=== PATIENT | female | born 1980 | race African-American/Black ===

== ENCOUNTER 2024-03-21 11:32 | Inpatient (IN) | payer MEDICAID ==
[~2024-03-21] VITALS: Ht 172.7 cm; Wt 80.9 kg
[~2024-03-21 11:32] MED LIST: DOCU-412 PO; HALOD100I IM; OLAN300V IM; OMEP20 PO
[2024-03-21 12:44] LABS: EOSINOPHILS % (AUTO) 0.4 % (1.0-6.0); HEMATOCRIT 40.4 % (36-46); HEMOGLOBIN 13.6 g/dL (12.0-16.0); LYMPHOCYTES # (AUTO) 3.7 K/uL (1.0-4.8); MEAN CORPUSCULAR HEMOGLOBIN 30.8 pg (26.0-34.0); MEAN CORPUSCULAR HGB CONC 33.6 G/dL (31.0-37.0); MEAN CORPUSCULAR VOLUME 92 fL (80-100); MONOCYTES % (AUTO) 9.1 % (2.0-9.0); NEUTROPHILS # (AUTO) 5.7 K/uL (1.8-7.7); NEUTROPHILS % (AUTO) 54.5 % (40.0-70.0); PLATELET COUNT (AUTO) 307 K/uL (150-450); RED BLOOD CELL COUNT(AUTO) 4.41 MIL/uL (4.00-5.20); RED CELL DISTRIBUTION WIDTH 15.1 % (11.5-14.5); WHITE BLOOD COUNT (AUTO) 10.5 K/uL (4.5-11.0)
[2024-03-21 12:45] LABS: ANION GAP 14 mmol/L (8-16); CALCIUM, TOTAL 8.9 mg/dL (8.8-10.5); CARBON DIOXIDE 24 mmol/L (22-29); CHLORIDE 104 mmol/L (98-107); CREATININE 0.65 mg/dL (0.60-1.30); GLOMERULAR FILTR. RATE CALC > 60 mL/min (>60); GLUCOSE,RANDOM 139 mg/dL (70-110); POTASSIUM 3.5 mmol/L (3.5-5.1); SODIUM SERUM 142 mmol/L (136-145); UREA NITROGEN, BLOOD 14 mg/dL (7-18)
[2024-03-21] MEDS ORDERED: OLANZapine 5 MG RAPDIS TABLET PO PRN (12:45)
[2024-03-21 12:50] LABS: ALCOHOL, BLOOD (SERUM) < 3 mg/dL (0-10)
[2024-03-21 12:51] LABS: ALANINE AMINOTRANSFERASE 26 U/L (12-78); ALBUMIN 3.6 g/dL (3.4-5.0); ALKALINE PHOSPHATASE 108 U/L (46-116); ASPARTATE AMINOTRANSFERASE 16 U/L (15-37); BILIRUBIN,TOTAL 0.1 mg/dL (0.1-1.0); TOTAL PROTEIN, SERUM 7.5 g/dL (6.4-8.2)
[2024-03-21 13:12] LABS: APPEARANCE,URINE CLEAR (CLEAR); BILIRUBIN,URINE NEGATIVE (NEGATIVE); COLOR,URINE YELLOW (YELLOW); GLUCOSE, URINE (UA) NEGATIVE (NEGATIVE); KETONES,URINE NEGATIVE (NEGATIVE); LEUKOCYTE ESTERASE ,URINE MODERATE (NEGATIVE); NITRATE,URINE NEGATIVE (NEGATIVE); OCCULT BLOOD,URINE NEGATIVE (NEGATIVE); PH,URINE 6.5 (5.0-8.0); PH,URINE DRUG SCREEN 6.5 (5.0-8.0); PROTEIN,URINE TRACE mg/dL (NEGATIVE); SPECIFIC GRAVITIY, URINE 1.025 (1.003-1.030); UROBILINOGEN,URINE <=1.0 mg/dL (<=1.0)
[2024-03-21 13:19] LABS: ALCOHOL, URINE DRUG SCREEN NEGATIVE (NEGATIVE); AMPHET/METH SCREEN,URINE NEGATIVE (NEGATIVE); BACTERIA,URINE None Seen /HPF (None Seen); BARBITURATE SCREEN, URINE NEGATIVE (NEGATIVE); BENZODIAZEPINES SCREEN,URINE NEGATIVE (NEGATIVE); CANNABINOID SCREEN,URINE NEGATIVE (NEGATIVE); COCAINE SCREEN,URINE NEGATIVE (NEGATIVE); METHADONE SCREEN, URINE NEGATIVE (NEGATIVE); OPIATE SCREEN,URINE NEGATIVE (NEGATIVE); PHENCYCLIDINE SCREEN,URINE NEGATIVE (NEGATIVE); RBC,URINE None Seen /HPF (0-2); SQUAMOUS EPITHELIAL CELL,UR Few /LPF (None Seen)
[2024-03-21 13:25] LABS: COVID AG,FIA SOURCE NASAL SWAB
[2024-03-21 13:30] VITALS: O2SAT 98
[2024-03-21 13:47] LABS: SARS-COV2 (COVID) ANTIGEN,FIA Negative (Negative)
[2024-03-21] MEDS: LORazepam 2 MG TABLET PO PRN (13:53)
[2024-03-21] MEDS ORDERED: HydrOXYzine PAMOATE 50 MG CAPSULE PO PRN (15:30)
[2024-03-21] MEDS ORDERED: PNEUMOCOCCAL VACCINE POLYVALENT 0.5 ML SYRINGE [PPSV23] IM. ONE (16:15)
[2024-03-21] MEDS ORDERED: ALBUTEROL SULFATE HFA 90 MCG/PUFF 8 GM INHALER IH PRN (16:30)
[2024-03-21 17:02] VITALS: BP 143/93; PULSE 100; RESP 16; TEMP 98; O2SAT 100
[2024-03-21 17:15] LABS: GLUCOMETER DEV NAME(LOC) ERT.5; GLUCOSE,POINT OF CARE 112 MG/DL (70-110)
[2024-03-21] MEDS: THIAMINE 100 MG TABLET PO SCH (17:59)
[2024-03-21 20:27] VITALS: BP 137/87; PULSE 84; RESP 16; TEMP 98.4; O2SAT 95
[2024-03-21] MEDS: DIVALPROEX SODIUM 500 MG ER TABLET PO SCH (20:58)
[2024-03-21] MEDS: MELATONIN 5 MG TABLET PO SCH (20:58)
[2024-03-21] MEDS: OLANZapine 5 MG RAPDIS TABLET PO SCH (20:59)
[2024-03-21] MEDS: ZOLPIDEM TARTRATE 10 MG TABLET PO PRN (22:28)
[2024-03-22 06:31] LABS: GLUCOMETER DEV NAME(LOC) BV3S.; GLUCOSE,POINT OF CARE 101 MG/DL (70-110)
[2024-03-22 08:18] VITALS: BP 140/75; PULSE 100; RESP 16; TEMP 98; O2SAT 100
[2024-03-22] MEDS: MULTIVITAMINS WITH MINERALS, THERAPEUTIC TABLET PO SCH (08:55)
[2024-03-22] MEDS: NALTREXONE HCL 50 MG TABLET PO SCH (08:55)
[2024-03-22] MEDS: FOLIC ACID 1 MG TABLET PO SCH (08:55)
[2024-03-22] MEDS: OMEGA-3/DHA/EPA/FISH OIL 1,000 MG CAPSULE PO SCH (08:55)
[2024-03-22] MEDS: PALIPERIDONE PALMITATE 234 MG/1.5 ML SYRINGE IM ONE (09:08)
[2024-03-22 09:45] LABS: GLUCOMETER DEV NAME(LOC) BV3S.; GLUCOSE,POINT OF CARE 126 MG/DL (70-110)
[2024-03-22] MEDS: AmLODIPine BESYLATE 10 MG TABLET PO SCH (10:37)
[2024-03-22] MEDS: ATENOLOL 50 MG TABLET PO SCH (10:37)
[2024-03-22 13:04] VITALS: RESP 16
[2024-03-22] MEDS: ACETAMINOPHEN 325 MG TABLET PO PRN (13:04)
[2024-03-22 14:04] VITALS: RESP 16
[2024-03-22] MEDS: MetFORMIN HCL 500 MG TABLET PO SCH (17:13)
[2024-03-22] MEDS: ATORVASTATIN CALCIUM 20 MG TABLET PO SCH (20:29)
[2024-03-22 21:11] VITALS: BP 114/76; PULSE 96; RESP 16; TEMP 98; O2SAT 99
[2024-03-22 21:16] LABS: GLUCOMETER DEV NAME(LOC) BV3S.; GLUCOSE,POINT OF CARE 127 MG/DL (70-110)
[2024-03-23 01:22] VITALS: BP 120/77; RESP 16
[2024-03-23] MEDS: LEVOTHYROXINE SODIUM 112 MCG TABLET PO SCH (06:30)
[2024-03-23] MEDS: LOPERAMIDE HCL 2 MG CAPSULE PO PRN (06:30)
[2024-03-23 06:51] LABS: GLUCOMETER DEV NAME(LOC) BV3S.; GLUCOSE,POINT OF CARE 108 MG/DL (70-110)
[2024-03-23] MEDS: CloZAPine 25 MG TABLET PO SCH (08:27)
[2024-03-23 08:28] VITALS: RESP 18
[2024-03-23 11:46] LABS: GLUCOMETER DEV NAME(LOC) BV3S.; GLUCOSE,POINT OF CARE 123 MG/DL (70-110)
[2024-03-23 16:40] LABS: GLUCOMETER DEV NAME(LOC) BV3S.; GLUCOSE,POINT OF CARE 124 MG/DL (70-110)
[2024-03-23 20:01] VITALS: RESP 20
[2024-03-24 06:55] LABS: GLUCOMETER DEV NAME(LOC) BV3S.; GLUCOSE,POINT OF CARE 102 MG/DL (70-110)
[2024-03-24 08:07] VITALS: BP 129/74; PULSE 99; RESP 16; TEMP 97.9; O2SAT 100
[2024-03-24] MEDS: CloZAPine 25 MG TABLET PO SCH (08:08)
[2024-03-24 20:19] VITALS: RESP 18
[2024-03-24] MEDS: HALOPERIDOL 10 MG TABLET PO SCH (20:28)
[2024-03-24] MEDS: CloZAPine 100 MG TABLET PO SCH (20:28)
[2024-03-24] MEDS ORDERED: CloZAPine 25 MG TABLET PO SCH (21:00)
[2024-03-25 08:01] VITALS: BP 125/64; PULSE 100; RESP 17; TEMP 97.8; O2SAT 99
[2024-03-25 08:06] LABS: BASOPHILS % (AUTO) 1.2 % (0.0-2.0); EOSINOPHILS % (AUTO) 1.3 % (1.0-6.0); HEMATOCRIT 41.9 % (36-46); HEMOGLOBIN 14.2 g/dL (12.0-16.0); LYMPHOCYTES # (AUTO) 3.8 K/uL (1.0-4.8); MEAN CORPUSCULAR HEMOGLOBIN 31.4 pg (26.0-34.0); MEAN CORPUSCULAR HGB CONC 33.8 G/dL (31.0-37.0); MEAN CORPUSCULAR VOLUME 93 fL (80-100); MONOCYTES # (AUTO) 0.7 K/uL (0.1-1.0); MONOCYTES % (AUTO) 7.6 % (2.0-9.0); NEUTROPHILS # (AUTO) 4.3 K/uL (1.8-7.7); NEUTROPHILS % (AUTO) 47.9 % (40.0-70.0); PLATELET COUNT (AUTO) 320 K/uL (150-450); RED BLOOD CELL COUNT(AUTO) 4.51 MIL/uL (4.00-5.20)
[2024-03-25] MEDS: OXcarbazepine 300 MG TABLET PO SCH (08:08)
[2024-03-25] MEDS: HALOPERIDOL 10 MG TABLET PO SCH (08:08)
[2024-03-25] MEDS: CloZAPine 100 MG TABLET PO SCH (08:08)
[2024-03-25 08:36] LABS: HEMOGLOBIN A1C 5.5 % (3.8-5.6)
[2024-03-25 08:39] LABS: ALANINE AMINOTRANSFERASE 22 U/L (12-78); ALBUMIN 3.6 g/dL (3.4-5.0); ALKALINE PHOSPHATASE 108 U/L (46-116); ANION GAP 15 mmol/L (8-16); ASPARTATE AMINOTRANSFERASE 12 U/L (15-37); BILIRUBIN,TOTAL 0.2 mg/dL (0.1-1.0); CALCIUM, TOTAL 9.2 mg/dL (8.8-10.5); CARBON DIOXIDE 21 mmol/L (22-29); CHLORIDE 106 mmol/L (98-107); CREATININE 0.65 mg/dL (0.60-1.30); GLOMERULAR FILTR. RATE CALC > 60 mL/min (>60); GLUCOSE,RANDOM 140 mg/dL (70-110); HCG,QUANTITATIVE 1 mIU/mL (0-6); POTASSIUM 3.8 mmol/L (3.5-5.1); SODIUM SERUM 142 mmol/L (136-145); TOTAL PROTEIN, SERUM 7.8 g/dL (6.4-8.2); UREA NITROGEN, BLOOD 15 mg/dL (7-18); VALPROIC ACID 71 mcg/mL (50-100)
[2024-03-25] MEDS ORDERED: CloZAPine 25 MG TABLET PO SCH ×2 (09:00→21:00)
[2024-03-26 00:20] VITALS: RESP 18; TEMP 97.6
[2024-03-26 08:12] VITALS: RESP 16
[2024-03-26] MEDS ORDERED: HALOPERIDOL DECANOATE 100 MG/ML VIAL IM SCH (09:00)
[2024-03-26] MEDS ORDERED: CloZAPine 25 MG TABLET PO SCH (09:00)
[2024-03-26] MEDS: PALIPERIDONE PALMITATE 156 MG/ML SYRINGE IM ONE (09:39)
[2024-03-26 16:30] VITALS: BP 135/86; PULSE 108; RESP 17; TEMP 97.5
[2024-03-26 17:30] VITALS: BP 130/85; PULSE 100; RESP 18; TEMP 97.4; O2SAT 99
[2024-03-26] MEDS: DOCUSATE SODIUM 250 MG CAPSULE PO SCH (21:00)
[2024-03-26] MEDS: MELATONIN 5 MG TABLET PO SCH (21:16)
[2024-03-26 21:20] VITALS: BP 130/89; PULSE 98; RESP 17; TEMP 97.1; O2SAT 98
[2024-03-27 08:16] VITALS: BP 122/69; PULSE 88; RESP 16; TEMP 97.9; O2SAT 100
[2024-03-27] MEDS: BENZTROPINE MESYLATE 1 MG TABLET PO SCH (08:38)
[2024-03-27 20:03] VITALS: RESP 20
[2024-03-28 08:16] VITALS: BP 118/74; PULSE 89; RESP 16; TEMP 97.9; O2SAT 96
[2024-03-28] MEDS ORDERED: CloZAPine 25 MG TABLET PO SCH (09:00)
[2024-03-28 16:33] VITALS: RESP 20
[2024-03-28 20:01] VITALS: RESP 20
[2024-03-28] MEDS ORDERED: CloZAPine 100 MG TABLET PO SCH (21:00)
[2024-03-29 08:55] VITALS: BP 106/67; PULSE 100; RESP 17; TEMP 97.2; O2SAT 99
[2024-03-29] MEDS ORDERED: CloZAPine 25 MG TABLET PO SCH (09:00)
[2024-03-29 13:06] LABS: CLOZAPINE & NORCLOZAPINE 424 ng/mL; NORCLOZAPINE 96 ng/mL (Not Estab.)
[2024-03-29 20:53] VITALS: BP 128/64; PULSE 90; O2SAT 96
[2024-03-29] MEDS: CloZAPine 100 MG TABLET PO SCH (20:53)
[2024-03-29] MEDS ORDERED: CloZAPine 100 MG TABLET PO SCH (21:00)
[2024-03-29] MEDS: OLANZapine 10 MG RAPDIS TABLET PO SCH (21:03)
[2024-03-30] MEDS ORDERED: CloZAPine 25 MG TABLET PO SCH (09:00)
[2024-03-30 10:32] VITALS: BP 124/78; PULSE 107; RESP 18; TEMP 97.6; O2SAT 100
[2024-03-30] MEDS ORDERED: CloZAPine 100 MG TABLET PO SCH (21:00)
[2024-03-30] MEDS: HALOPERIDOL LACTATE 5 MG/ML VIAL IM PRN (23:01)
[2024-03-31 08:21] VITALS: BP 137/97; PULSE 100; RESP 18; TEMP 97.8; O2SAT 99
[2024-03-31] MEDS ORDERED: CloZAPine 100 MG TABLET PO SCH (09:00)
[2024-03-31 20:09] VITALS: BP 116/63; PULSE 86; TEMP 97.8; O2SAT 97
[2024-03-31 20:25] VITALS: RESP 16
[2024-04-01 07:59] LABS: BASOPHILS % (AUTO) 0.6 % (0.0-2.0); EOSINOPHILS % (AUTO) 1.3 % (1.0-6.0); HEMATOCRIT 39.6 % (36-46); HEMOGLOBIN 13.4 g/dL (12.0-16.0); LYMPHOCYTES # (AUTO) 3.5 K/uL (1.0-4.8); LYMPHOCYTES % (AUTO) 44.4 % (22.0-44.0); MEAN CORPUSCULAR HEMOGLOBIN 31.1 pg (26.0-34.0); MEAN CORPUSCULAR HGB CONC 33.8 G/dL (31.0-37.0); MEAN CORPUSCULAR VOLUME 92 fL (80-100); MONOCYTES # (AUTO) 0.6 K/uL (0.1-1.0); MONOCYTES % (AUTO) 7.8 % (2.0-9.0); NEUTROPHILS # (AUTO) 3.6 K/uL (1.8-7.7); NEUTROPHILS % (AUTO) 45.9 % (40.0-70.0); PLATELET COUNT (AUTO) 322 K/uL (150-450); RED CELL DISTRIBUTION WIDTH 14.4 % (11.5-14.5); WHITE BLOOD COUNT (AUTO) 7.8 K/uL (4.5-11.0)
[2024-04-01 11:23] VITALS: PULSE 89; RESP 18
[2024-04-01] MEDS: MAG HYDROX/ALUMINUM HYD/SIMETH ES 30 ML SUSPENSION UDCUP PO PRN (20:05)
[2024-04-01] MEDS: CloZAPine 100 MG TABLET PO SCH (20:10)
[2024-04-01 21:10] VITALS: BP 117/72; PULSE 99; RESP 18; TEMP 98.1; O2SAT 99
[2024-04-01] MEDS: OLANZapine 5 MG RAPDIS TABLET PO SCH (21:10)
[2024-04-01 22:10] VITALS: BP 118/85; PULSE 95; RESP 17; TEMP 98.1; O2SAT 98
[2024-04-02] MEDS: DIVALPROEX SODIUM 500 MG ER TABLET PO SCH (08:08)
[2024-04-02] MEDS: HALOPERIDOL 10 MG TABLET PO PRN (08:08)
[2024-04-02] MEDS: CloZAPine 100 MG TABLET PO SCH (08:08)
[2024-04-02 08:23] VITALS: RESP 18
[2024-04-02] MEDS ORDERED: CloZAPine 25 MG TABLET PO SCH (09:00)
[2024-04-02] MEDS: QUEtiapine FUMARATE 200 MG TABLET PO SCH (20:04)
[2024-04-02 20:35] LABS: GLUCOMETER DEV NAME(LOC) BV3S.; GLUCOSE,POINT OF CARE 81 MG/DL (70-110)
[2024-04-02 20:45] VITALS: RESP 16
[2024-04-02] MEDS ORDERED: CloZAPine 100 MG TABLET PO SCH (21:00)
[2024-04-03 06:31] LABS: GLUCOMETER DEV NAME(LOC) BV3S.; GLUCOSE,POINT OF CARE 83 MG/DL (70-110)
[2024-04-03 08:08] VITALS: RESP 20
[2024-04-03] MEDS ORDERED: CloZAPine 25 MG TABLET PO SCH (09:00)
[2024-04-03 09:09] VITALS: RESP 20
[2024-04-03 12:32] VITALS: RESP 20
[2024-04-03 13:31] VITALS: RESP 20
[2024-04-03 20:46] VITALS: RESP 20
[2024-04-03] MEDS ORDERED: CloZAPine 100 MG TABLET PO SCH (21:00)
[2024-04-03] MEDS: QUEtiapine FUMARATE 100 MG TABLET PO PRN (23:06)
[2024-04-04] MEDS: VALPROIC ACID 250 MG/5 ML SOLUTION UDCUP PO SCH (08:23)
[2024-04-04 08:45] VITALS: BP 140/83; PULSE 100; RESP 18; TEMP 96.8
[2024-04-04] MEDS ORDERED: CloZAPine 100 MG TABLET PO SCH ×2 (09:00→21:00)
[2024-04-04 12:45] VITALS: RESP 20
[2024-04-04 13:42] VITALS: RESP 20
[2024-04-05 08:06] LABS: CLOZAPINE & NORCLOZAPINE 926 ng/mL; NORCLOZAPINE 229 ng/mL (Not Estab.)
[2024-04-05 08:13] VITALS: RESP 14
[2024-04-05 20:55] VITALS: BP 103/64; PULSE 88; RESP 16; TEMP 98; O2SAT 97
[2024-04-06 08:29] VITALS: BP 132/95; PULSE 100; RESP 18; TEMP 97.6; O2SAT 100
[2024-04-06 20:46] VITALS: BP 115/71; PULSE 100; RESP 18; TEMP 98; O2SAT 95
[2024-04-07] MEDS: QUEtiapine FUMARATE 200 MG TABLET PO SCH (20:17)
[2024-04-08 08:19] LABS: BASOPHILS % (AUTO) 0.6 % (0.0-2.0); EOSINOPHILS % (AUTO) 1.2 % (1.0-6.0); HEMATOCRIT 40.5 % (36-46); HEMOGLOBIN 13.5 g/dL (12.0-16.0); LYMPHOCYTES # (AUTO) 3.7 K/uL (1.0-4.8); LYMPHOCYTES % (AUTO) 48.7 % (22.0-44.0); MEAN CORPUSCULAR HEMOGLOBIN 30.6 pg (26.0-34.0); MEAN CORPUSCULAR HGB CONC 33.3 G/dL (31.0-37.0); MEAN CORPUSCULAR VOLUME 92 fL (80-100); MONOCYTES # (AUTO) 0.5 K/uL (0.1-1.0); MONOCYTES % (AUTO) 6.8 % (2.0-9.0); NEUTROPHILS # (AUTO) 3.3 K/uL (1.8-7.7); NEUTROPHILS % (AUTO) 42.7 % (40.0-70.0); PLATELET COUNT (AUTO) 276 K/uL (150-450); RED BLOOD CELL COUNT(AUTO) 4.42 MIL/uL (4.00-5.20); RED CELL DISTRIBUTION WIDTH 14.1 % (11.5-14.5); WHITE BLOOD COUNT (AUTO) 7.6 K/uL (4.5-11.0)
[2024-04-08 09:49] VITALS: BP 107/62; PULSE 84; RESP 17; TEMP 97.6; O2SAT 100
[2024-04-08 20:29] VITALS: PULSE 84; TEMP 97.3; O2SAT 100
[2024-04-09 08:13] VITALS: BP 132/82; PULSE 100; RESP 18; TEMP 97.9; O2SAT 100
[2024-04-10 05:26] VITALS: BP 132/85; PULSE 85; RESP 18; TEMP 97.8; O2SAT 98
[2024-04-10 08:17] VITALS: BP 130/86; PULSE 100; RESP 16; TEMP 97.6; O2SAT 99
[2024-04-10] MEDS: GABAPENTIN 300 MG CAPSULE PO PRN (08:35)
[2024-04-10 20:55] VITALS: BP 108/63; PULSE 85; RESP 18; TEMP 98.2
[2024-04-11 10:02] VITALS: BP 128/53; PULSE 95; RESP 18; TEMP 98.4; O2SAT 96
[2024-04-11 20:47] VITALS: BP 101/72; PULSE 95; RESP 18; TEMP 96.9; O2SAT 97
[2024-04-12 08:39] VITALS: BP 128/71; PULSE 93; RESP 18; TEMP 98.5; O2SAT 100
[2024-04-12 20:52] VITALS: TEMP 97.6
[2024-04-13 08:02] VITALS: BP 100/66; PULSE 97; RESP 16; TEMP 98; O2SAT 96
[2024-04-13 21:03] VITALS: RESP 18
[2024-04-14 08:44] VITALS: BP 129/85; PULSE 102; RESP 17; TEMP 97.4; O2SAT 96
[2024-04-14 20:56] VITALS: RESP 18; TEMP 97
[2024-04-15 10:55] VITALS: BP 127/86; PULSE 100; RESP 19; TEMP 98.1; O2SAT 99
[2024-04-15 20:06] VITALS: BP 132/79; PULSE 91; RESP 18; TEMP 98
[2024-04-16 08:34] LABS: BASOPHILS % (AUTO) 0.5 % (0.0-2.0); EOSINOPHILS % (AUTO) 3.5 % (1.0-6.0); HEMATOCRIT 40.8 % (36-46); HEMOGLOBIN 13.8 g/dL (12.0-16.0); LYMPHOCYTES # (AUTO) 3.4 K/uL (1.0-4.8); LYMPHOCYTES % (AUTO) 52.3 % (22.0-44.0); MEAN CORPUSCULAR HEMOGLOBIN 30.9 pg (26.0-34.0); MEAN CORPUSCULAR HGB CONC 33.7 G/dL (31.0-37.0); MEAN CORPUSCULAR VOLUME 92 fL (80-100); MONOCYTES # (AUTO) 0.5 K/uL (0.1-1.0); MONOCYTES % (AUTO) 8.3 % (2.0-9.0); NEUTROPHILS # (AUTO) 2.3 K/uL (1.8-7.7); NEUTROPHILS % (AUTO) 35.4 % (40.0-70.0); PLATELET COUNT (AUTO) 196 K/uL (150-450); RED BLOOD CELL COUNT(AUTO) 4.45 MIL/uL (4.00-5.20); RED CELL DISTRIBUTION WIDTH 13.4 % (11.5-14.5); WHITE BLOOD COUNT (AUTO) 6.5 K/uL (4.5-11.0)
[2024-04-16 20:34] VITALS: BP 104/59; PULSE 93; RESP 18; TEMP 97.1
[2024-04-17 08:32] VITALS: RESP 17
[2024-04-17 20:38] VITALS: BP 99/63; PULSE 88; RESP 16; TEMP 97.1; O2SAT 95
[2024-04-17 22:15] VITALS: BP 110/66; PULSE 90; RESP 18; TEMP 97.9
[2024-04-18 08:05] VITALS: RESP 16
[2024-04-18 21:26] VITALS: BP 117/72; PULSE 91; RESP 18; TEMP 97.7
[2024-04-19 08:05] VITALS: BP 114/78; PULSE 87; RESP 18; TEMP 98; O2SAT 100
[2024-04-19 11:07] LABS: CLOZAPINE & NORCLOZAPINE 650 ng/mL; NORCLOZAPINE 148 ng/mL (Not Estab.)
[2024-04-19 20:00] VITALS: BP 114/78; PULSE 87; RESP 18; TEMP 98; O2SAT 100
[2024-04-20] MEDS: MUPIROCIN CALCIUM 2% 22 GM OINTMENT NASAL SCH (16:28)
[2024-04-20 20:20] VITALS: RESP 18
[2024-04-21 08:14] VITALS: BP 123/80; PULSE 71; RESP 13; TEMP 97.3; O2SAT 96
[2024-04-21 21:25] VITALS: RESP 16
[2024-04-22 08:18] VITALS: BP 124/88; PULSE 89; RESP 18; TEMP 97.8; O2SAT 98
[2024-04-22 20:00] VITALS: BP 127/80; PULSE 65; RESP 18; TEMP 98
[2024-04-23 08:16] VITALS: BP 103/61; PULSE 82; RESP 18; TEMP 98; O2SAT 100
[2024-04-23 08:44] LABS: BASOPHILS % (AUTO) 0.5 % (0.0-2.0); EOSINOPHILS % (AUTO) 3.1 % (1.0-6.0); HEMATOCRIT 42.5 % (36-46); HEMOGLOBIN 14.3 g/dL (12.0-16.0); LYMPHOCYTES # (AUTO) 3.8 K/uL (1.0-4.8); MEAN CORPUSCULAR HEMOGLOBIN 30.7 pg (26.0-34.0); MEAN CORPUSCULAR HGB CONC 33.7 G/dL (31.0-37.0); MEAN CORPUSCULAR VOLUME 91 fL (80-100); MONOCYTES # (AUTO) 0.6 K/uL (0.1-1.0); MONOCYTES % (AUTO) 7.8 % (2.0-9.0); NEUTROPHILS # (AUTO) 3.5 K/uL (1.8-7.7); NEUTROPHILS % (AUTO) 42.6 % (40.0-70.0); PLATELET COUNT (AUTO) 221 K/uL (150-450); RED BLOOD CELL COUNT(AUTO) 4.66 MIL/uL (4.00-5.20); RED CELL DISTRIBUTION WIDTH 13.5 % (11.5-14.5); WHITE BLOOD COUNT (AUTO) 8.3 K/uL (4.5-11.0)
[2024-04-23 20:35] LABS: GLUCOMETER DEV NAME(LOC) BV3S.; GLUCOSE,POINT OF CARE 71 MG/DL (70-110)
[2024-04-24 08:18] VITALS: BP 106/66; PULSE 79; RESP 16; TEMP 98; O2SAT 100
[2024-04-25 08:24] VITALS: BP 118/74; PULSE 82; RESP 18; TEMP 97.9; O2SAT 97
[2024-04-25 21:05] VITALS: BP 133/91; PULSE 120; RESP 19; TEMP 97.5; O2SAT 97
[2024-04-26 08:10] VITALS: BP 110/71; PULSE 100; RESP 16; TEMP 98.3; O2SAT 98
[2024-04-27 08:14] VITALS: BP 100/62; PULSE 89; RESP 18; TEMP 98; O2SAT 98
[2024-04-27 21:20] VITALS: RESP 18
[2024-04-28 09:30] VITALS: BP 128/74; PULSE 102; RESP 18; TEMP 97.6; O2SAT 100
[2024-04-28 18:28] VITALS: RESP 18
[2024-04-28 19:28] VITALS: RESP 18
[2024-04-28 20:40] VITALS: BP 130/76; PULSE 91; RESP 16; TEMP 97.5; O2SAT 95
[2024-04-29] MEDS: PANTOPRAZOLE SODIUM 40 MG DR TABLET PO SCH (08:17)
[2024-04-30 00:36] VITALS: RESP 18
[2024-04-30 08:00] VITALS: BP 139/89; PULSE 103; RESP 16; TEMP 97.5; O2SAT 97
[2024-04-30 08:28] VITALS: BP 139/89; PULSE 103; RESP 16; TEMP 97.5; O2SAT 97
[2024-04-30 08:38] LABS: BASOPHILS % (AUTO) 0.4 % (0.0-2.0); HEMATOCRIT 41.4 % (36-46); LYMPHOCYTES # (AUTO) 3.2 K/uL (1.0-4.8); LYMPHOCYTES % (AUTO) 41.4 % (22.0-44.0); MEAN CORPUSCULAR HEMOGLOBIN 30.6 pg (26.0-34.0); MEAN CORPUSCULAR HGB CONC 33.8 G/dL (31.0-37.0); MEAN CORPUSCULAR VOLUME 90 fL (80-100); MONOCYTES # (AUTO) 0.6 K/uL (0.1-1.0); MONOCYTES % (AUTO) 7.6 % (2.0-9.0); NEUTROPHILS # (AUTO) 3.7 K/uL (1.8-7.7); NEUTROPHILS % (AUTO) 47.6 % (40.0-70.0); PLATELET COUNT (AUTO) 249 K/uL (150-450); RED BLOOD CELL COUNT(AUTO) 4.58 MIL/uL (4.00-5.20); RED CELL DISTRIBUTION WIDTH 13.8 % (11.5-14.5); WHITE BLOOD COUNT (AUTO) 7.7 K/uL (4.5-11.0)
[2024-05-01 06:26] LABS: GLUCOMETER DEV NAME(LOC) BV3S.; GLUCOSE,POINT OF CARE 115 MG/DL (70-110)
[2024-05-01 08:06] LABS: CLOZAPINE & NORCLOZAPINE 863 ng/mL; NORCLOZAPINE 214 ng/mL (Not Estab.)
[2024-05-01 08:16] VITALS: BP 110/69; PULSE 99; RESP 17; TEMP 97.3; O2SAT 97
[2024-05-01 09:12] LABS: APPEARANCE,URINE HAZY (CLEAR); BILIRUBIN,URINE NEGATIVE (NEGATIVE); COLOR,URINE YELLOW (YELLOW); GLUCOSE, URINE (UA) NEGATIVE (NEGATIVE); KETONES,URINE TRACE mg/dL (NEGATIVE); LEUKOCYTE ESTERASE ,URINE NEGATIVE (NEGATIVE); NITRATE,URINE NEGATIVE (NEGATIVE); OCCULT BLOOD,URINE NEGATIVE (NEGATIVE); PH,URINE 6.5 (5.0-8.0); PROTEIN,URINE 30-70 mg/dL (NEGATIVE); SPECIFIC GRAVITIY, URINE 1.031 (1.003-1.030); UROBILINOGEN,URINE <=1.0 mg/dL (<=1.0)
[2024-05-01 09:48] LABS: BACTERIA,URINE Rare /HPF (None Seen); RBC,URINE None Seen /HPF (0-2); WBC,URINE 0-2 /HPF (0-5)
[2024-05-01 09:49] LABS: CALCIUM OXALATE CRYSTALS,UR Moderate /LPF (None Seen); SQUAMOUS EPITHELIAL CELL,UR Few /LPF (None Seen)
[2024-05-01 20:29] VITALS: BP 126/70; PULSE 100; TEMP 97.9; O2SAT 100
[2024-05-02 08:35] VITALS: BP 127/81; PULSE 111; RESP 18; TEMP 97.1; O2SAT 97
[2024-05-02 12:30] LABS: GLUCOMETER DEV NAME(LOC) BV3S.; GLUCOSE,POINT OF CARE 103 MG/DL (70-110)
[2024-05-02] MEDS: QUEtiapine FUMARATE 300 MG TABLET PO SCH (20:57)
[2024-05-02 21:09] VITALS: BP 98/62; PULSE 75; TEMP 96.9; O2SAT 100
[2024-05-03 08:15] VITALS: BP 111/70; PULSE 100; RESP 18; TEMP 97.8; O2SAT 98
[2024-05-03 20:12] VITALS: BP 121/57; PULSE 89; TEMP 97; O2SAT 99
[2024-05-03] MEDS: PROMETHAZINE HCL 25 MG TABLET PO PRN (20:37)
[2024-05-03] MEDS: ONDANSETRON 4 MG TABLET PO PRN (23:17)
[2024-05-04 08:43] VITALS: BP 91/56; PULSE 93; RESP 17; TEMP 97.6; O2SAT 99
[2024-05-04 10:05] VITALS: BP 115/60; PULSE 88; RESP 17; TEMP 97.5; O2SAT 96
[2024-05-04 20:15] VITALS: BP 110/83; PULSE 87; RESP 18; TEMP 97.4; O2SAT 98
[2024-05-05 08:30] VITALS: BP 96/59; PULSE 89; RESP 16; TEMP 97.9; O2SAT 100
[2024-05-05 12:31] VITALS: RESP 17
[2024-05-05 13:31] VITALS: RESP 17
[2024-05-06 09:47] VITALS: BP 104/76; PULSE 99; RESP 18; TEMP 97.8; O2SAT 99
[2024-05-06] MEDS: TUBERCULIN, PURIFIED PROTEIN DERIVATIVE 5 TU/0.1 ML SYRINGE ID ONE (20:10)
[2024-05-06 21:17] VITALS: BP 107/70; PULSE 92; RESP 20; TEMP 96.5; O2SAT 98
[2024-05-07 08:47] VITALS: BP 133/90; PULSE 100; RESP 17; TEMP 97.1; O2SAT 98
[2024-05-07 09:17] LABS: BASOPHILS % (AUTO) 0.5 % (0.0-2.0); EOSINOPHILS % (AUTO) 2.6 % (1.0-6.0); HEMATOCRIT 43.2 % (36-46); HEMOGLOBIN 14.2 g/dL (12.0-16.0); LYMPHOCYTES # (AUTO) 4.2 K/uL (1.0-4.8); LYMPHOCYTES % (AUTO) 47.3 % (22.0-44.0); MEAN CORPUSCULAR HEMOGLOBIN 29.9 pg (26.0-34.0); MEAN CORPUSCULAR HGB CONC 32.9 G/dL (31.0-37.0); MEAN CORPUSCULAR VOLUME 91 fL (80-100); MONOCYTES # (AUTO) 0.8 K/uL (0.1-1.0); MONOCYTES % (AUTO) 9.1 % (2.0-9.0); NEUTROPHILS # (AUTO) 3.6 K/uL (1.8-7.7); NEUTROPHILS % (AUTO) 40.5 % (40.0-70.0); PLATELET COUNT (AUTO) 221 K/uL (150-450); RED BLOOD CELL COUNT(AUTO) 4.75 MIL/uL (4.00-5.20); RED CELL DISTRIBUTION WIDTH 13.8 % (11.5-14.5); WHITE BLOOD COUNT (AUTO) 8.8 K/uL (4.5-11.0)
[2024-05-07 20:20] VITALS: RESP 16
[2024-05-08 11:00] VITALS: BP 116/76; PULSE 99; RESP 17; TEMP 96.8; O2SAT 99
[2024-05-08 21:03] VITALS: BP 107/75; PULSE 88; RESP 18; TEMP 97.5; O2SAT 98
[2024-05-09 08:16] VITALS: BP 113/66; PULSE 76; RESP 16; TEMP 97.8; O2SAT 98
[2024-05-09] MEDS: LORazepam 2 MG/ML VIAL IM ONE (11:02)
[2024-05-09] MEDS: HALOPERIDOL LACTATE 5 MG/ML VIAL IM ONE (11:05)
[2024-05-09] MEDS: DiphenhydrAMINE HCL 50 MG/ML VIAL IM ONE (11:05)
[2024-05-09 20:21] VITALS: BP 103/66; PULSE 72; RESP 18; TEMP 97.9; O2SAT 95
[2024-05-10 08:38] LABS: APPEARANCE,URINE CLEAR (CLEAR); BILIRUBIN,URINE NEGATIVE (NEGATIVE); COLOR,URINE LIGHT YELLOW (YELLOW); GLUCOSE, URINE (UA) NEGATIVE (NEGATIVE); KETONES,URINE NEGATIVE (NEGATIVE); LEUKOCYTE ESTERASE ,URINE NEGATIVE (NEGATIVE); NITRATE,URINE NEGATIVE (NEGATIVE); OCCULT BLOOD,URINE NEGATIVE (NEGATIVE); PROTEIN,URINE NEGATIVE (NEGATIVE); SPECIFIC GRAVITIY, URINE 1.013 (1.003-1.030); UROBILINOGEN,URINE <=1.0 mg/dL (<=1.0)
[2024-05-10 09:10] VITALS: BP 130/92; PULSE 116; RESP 18; TEMP 96.7; O2SAT 99
[2024-05-10 09:17] VITALS: PULSE 100
[2024-05-10 09:19] LABS: BACTERIA,URINE None Seen /HPF (None Seen); CALCIUM OXALATE CRYSTALS,UR Many /LPF (None Seen); RBC,URINE None Seen /HPF (0-2); WBC,URINE 0-2 /HPF (0-5)
[2024-05-10] MEDS: ETHYL ALCOHOL 62% ANTISEPTIC NASAL SANITIZER 0.6 ML AMPUL NASAL SCH (20:31)
[2024-05-10 21:12] VITALS: RESP 16
[2024-05-11 08:38] VITALS: BP 121/76; PULSE 93; RESP 18; TEMP 98; O2SAT 97
[2024-05-11 20:10] VITALS: BP 97/66; PULSE 93; RESP 17; TEMP 98.3; O2SAT 100
[2024-05-11] MEDS: QUEtiapine FUMARATE 200 MG TABLET PO SCH (20:40)
[2024-05-12 08:42] VITALS: BP 110/83; PULSE 100; RESP 17; TEMP 97.3; O2SAT 100
[2024-05-13 00:06] VITALS: RESP 16
[2024-05-13 08:20] VITALS: BP 119/74; PULSE 97; RESP 18; TEMP 96.9; O2SAT 97
[2024-05-13 21:01] VITALS: RESP 17
[2024-05-14 08:17] VITALS: BP 109/74; PULSE 85; RESP 18; TEMP 97.8
[2024-05-14 09:37] LABS: BASOPHILS % (AUTO) 0.6 % (0.0-2.0); EOSINOPHILS % (AUTO) 2.2 % (1.0-6.0); HEMATOCRIT 42.3 % (36-46); HEMOGLOBIN 13.8 g/dL (12.0-16.0); LYMPHOCYTES # (AUTO) 3.8 K/uL (1.0-4.8); LYMPHOCYTES % (AUTO) 27.8 % (22.0-44.0); MEAN CORPUSCULAR HEMOGLOBIN 29.9 pg (26.0-34.0); MEAN CORPUSCULAR HGB CONC 32.6 G/dL (31.0-37.0); MEAN CORPUSCULAR VOLUME 92 fL (80-100); MONOCYTES # (AUTO) 0.9 K/uL (0.1-1.0); MONOCYTES % (AUTO) 6.8 % (2.0-9.0); NEUTROPHILS # (AUTO) 8.5 K/uL (1.8-7.7); NEUTROPHILS % (AUTO) 62.6 % (40.0-70.0); PLATELET COUNT (AUTO) 239 K/uL (150-450); RED BLOOD CELL COUNT(AUTO) 4.61 MIL/uL (4.00-5.20); WHITE BLOOD COUNT (AUTO) 13.5 K/uL (4.5-11.0)
[2024-05-14 09:55] LABS: ALBUMIN 3.1 g/dL (3.4-5.0); BILIRUBIN,DIRECT 0.1 mg/dL (0.00-0.20); BILIRUBIN,TOTAL 0.2 mg/dL (0.1-1.0)
[2024-05-14 20:00] VITALS: RESP 18
[2024-05-14 23:50] VITALS: RESP 16
[2024-05-15 10:15] VITALS: BP 119/66; RESP 17
[2024-05-15 21:51] VITALS: PULSE 81; RESP 16; TEMP 97.8
[2024-05-16 08:13] VITALS: BP 100/61; PULSE 84; RESP 16; TEMP 97.6; O2SAT 99
[2024-05-16 20:25] VITALS: BP 88/50; PULSE 85; TEMP 97.1; O2SAT 100
[2024-05-17 02:06] LABS: HEPATITIS A ANTIBODY IGM Negative (Negative); HEPATITIS B CORE IGM Negative (Negative); HEPATITIS C AB (EIA) Non Reactive (Non Reactive)
[2024-05-17 08:05] VITALS: BP 116/65; PULSE 107; RESP 16; TEMP 97.8; O2SAT 97
[2024-05-17 20:36] VITALS: BP 120/90; PULSE 100; RESP 16; TEMP 97.5; O2SAT 100
[2024-05-18 08:01] LABS: BASOPHILS % (AUTO) 0.6 % (0.0-2.0); EOSINOPHILS % (AUTO) 5.6 % (1.0-6.0); HEMATOCRIT 39.7 % (36-46); HEMOGLOBIN 13.3 g/dL (12.0-16.0); LYMPHOCYTES # (AUTO) 3.6 K/uL (1.0-4.8); LYMPHOCYTES % (AUTO) 36.7 % (22.0-44.0); MEAN CORPUSCULAR HEMOGLOBIN 30.4 pg (26.0-34.0); MEAN CORPUSCULAR HGB CONC 33.5 G/dL (31.0-37.0); MEAN CORPUSCULAR VOLUME 91 fL (80-100); MONOCYTES # (AUTO) 0.9 K/uL (0.1-1.0); MONOCYTES % (AUTO) 9.6 % (2.0-9.0); NEUTROPHILS # (AUTO) 4.6 K/uL (1.8-7.7); NEUTROPHILS % (AUTO) 47.5 % (40.0-70.0); PLATELET COUNT (AUTO) 225 K/uL (150-450); RED BLOOD CELL COUNT(AUTO) 4.38 MIL/uL (4.00-5.20); RED CELL DISTRIBUTION WIDTH 14.1 % (11.5-14.5); WHITE BLOOD COUNT (AUTO) 9.8 K/uL (4.5-11.0)
[2024-05-18 08:02] VITALS: BP 107/76; PULSE 100; RESP 16; TEMP 97.6; O2SAT 99
[2024-05-18 20:15] VITALS: BP 94/54; PULSE 86; RESP 16; TEMP 97.7; O2SAT 99
[2024-05-18] MEDS: DIVALPROEX SODIUM 500 MG ER TABLET PO SCH (21:00)
[2024-05-19 08:21] VITALS: BP 124/72; PULSE 100; RESP 16; TEMP 97.6; O2SAT 98
[2024-05-19 20:07] VITALS: BP 98/62; PULSE 88; RESP 16; TEMP 97.7; O2SAT 96
[2024-05-20 09:11] VITALS: BP 109/79; PULSE 99; RESP 18; TEMP 98; O2SAT 100
[2024-05-21] MEDS: VALPROIC ACID 250 MG/5 ML SOLUTION UDCUP PO SCH (08:04)
[2024-05-21] MEDS: CloZAPine 100 MG TABLET PO SCH ×2 (08:05→20:02)
[2024-05-21 08:18] VITALS: BP 118/89; PULSE 87; RESP 18; TEMP 97.8; O2SAT 100
[2024-05-21 20:12] VITALS: RESP 16
[2024-05-22 08:11] VITALS: BP 115/75; PULSE 100; RESP 16; TEMP 97.9; O2SAT 98
[2024-05-23 08:11] VITALS: BP 111/67; PULSE 100; RESP 16; TEMP 97.7; O2SAT 96
[2024-05-23 11:07] LABS: CLOZAPINE & NORCLOZAPINE 849 ng/mL; NORCLOZAPINE 205 ng/mL (Not Estab.)
[2024-05-24 08:22] VITALS: BP 114/84; PULSE 105; RESP 18; TEMP 97.3; O2SAT 100
[2024-05-24 12:36] LABS: GLUCOMETER DEV NAME(LOC) BV3S.; GLUCOSE,POINT OF CARE 133 MG/DL (70-110)
[2024-05-25 08:14] VITALS: BP 118/56; PULSE 100; RESP 18; TEMP 98; O2SAT 96
[2024-05-25 09:42] LABS: EOSINOPHILS % (AUTO) 6.8 % (1.0-6.0); HEMATOCRIT 40.7 % (36-46); HEMOGLOBIN 13.4 g/dL (12.0-16.0); LYMPHOCYTES # (AUTO) 4.7 K/uL (1.0-4.8); LYMPHOCYTES % (AUTO) 41.8 % (22.0-44.0); MEAN CORPUSCULAR HEMOGLOBIN 29.8 pg (26.0-34.0); MEAN CORPUSCULAR VOLUME 90 fL (80-100); MONOCYTES % (AUTO) 9.3 % (2.0-9.0); NEUTROPHILS # (AUTO) 4.6 K/uL (1.8-7.7); NEUTROPHILS % (AUTO) 41.1 % (40.0-70.0); PLATELET COUNT (AUTO) 295 K/uL (150-450); RED CELL DISTRIBUTION WIDTH 14.2 % (11.5-14.5); WHITE BLOOD COUNT (AUTO) 11.2 K/uL (4.5-11.0)
[2024-05-25] MEDS: VALPROIC ACID 250 MG/5 ML SOLUTION UDCUP PO SCH (20:36)
[2024-05-25 21:59] VITALS: BP 111/72; PULSE 18; RESP 18; TEMP 97.1; O2SAT 100
[2024-05-26 08:33] VITALS: BP 131/82; PULSE 105; RESP 18; TEMP 97.6; O2SAT 99
[2024-05-26 23:27] VITALS: RESP 18
[2024-05-27 10:53] VITALS: BP 126/80; PULSE 96; RESP 16; TEMP 97.8; O2SAT 100
[2024-05-27] MEDS: QUEtiapine FUMARATE 200 MG TABLET PO SCH (21:13)
[2024-05-27 23:10] VITALS: RESP 18
[2024-05-28 08:40] VITALS: BP 123/83; PULSE 80; RESP 20; TEMP 98; O2SAT 100
[2024-05-28 23:40] VITALS: BP 123/83; PULSE 80; RESP 20; TEMP 98; O2SAT 100
[2024-05-29 11:51] VITALS: BP 121/82; PULSE 89; RESP 18; TEMP 97.7; O2SAT 98
[2024-05-29 20:13] VITALS: BP 120/73; PULSE 83; RESP 18; TEMP 97.5; O2SAT 97
[2024-05-30 10:09] VITALS: BP 134/90; PULSE 100; RESP 18; TEMP 97.3; O2SAT 98
[2024-05-30] MEDS: CloZAPine 100 MG TABLET PO SCH ×2 (20:29→20:30)
[2024-05-30] MEDS: QUEtiapine FUMARATE 300 MG TABLET PO SCH (20:31)
[2024-05-30] MEDS: RisperiDONE 1 MG TABLET PO SCH (20:33)
[2024-05-30 22:18] VITALS: BP 100/68; PULSE 80; RESP 17; TEMP 97.3; O2SAT 80
[2024-05-31 08:14] VITALS: BP 131/84; PULSE 100; RESP 18; TEMP 97.8; O2SAT 98
[2024-05-31] MEDS: RisperiDONE 2 MG TABLET PO SCH (20:23)
[2024-05-31 23:44] VITALS: RESP 18
[2024-06-01 08:18] LABS: BASOPHILS % (AUTO) 0.6 % (0.0-2.0); EOSINOPHILS % (AUTO) 7.5 % (1.0-6.0); HEMATOCRIT 39.5 % (36-46); HEMOGLOBIN 13.2 g/dL (12.0-16.0); LYMPHOCYTES # (AUTO) 3.6 K/uL (1.0-4.8); LYMPHOCYTES % (AUTO) 39.2 % (22.0-44.0); MEAN CORPUSCULAR HEMOGLOBIN 30.3 pg (26.0-34.0); MEAN CORPUSCULAR HGB CONC 33.5 G/dL (31.0-37.0); MEAN CORPUSCULAR VOLUME 91 fL (80-100); MONOCYTES # (AUTO) 0.5 K/uL (0.1-1.0); MONOCYTES % (AUTO) 4.9 % (2.0-9.0); NEUTROPHILS # (AUTO) 4.5 K/uL (1.8-7.7); NEUTROPHILS % (AUTO) 47.8 % (40.0-70.0); PLATELET COUNT (AUTO) 277 K/uL (150-450); RED BLOOD CELL COUNT(AUTO) 4.36 MIL/uL (4.00-5.20); RED CELL DISTRIBUTION WIDTH 14.5 % (11.5-14.5); WHITE BLOOD COUNT (AUTO) 9.3 K/uL (4.5-11.0)
[2024-06-01 08:50] VITALS: BP 104/68; PULSE 89; RESP 18; TEMP 97.3; O2SAT 100
[2024-06-01 20:01] VITALS: BP 101/61; PULSE 77; RESP 20; TEMP 97.2; O2SAT 99
[2024-06-02 09:02] VITALS: BP 120/80; PULSE 70; RESP 18; TEMP 96.5; O2SAT 98
[2024-06-02 17:10] LABS: GLUCOMETER DEV NAME(LOC) BV3S.; GLUCOSE,POINT OF CARE 94 MG/DL (70-110)
[2024-06-02 23:36] VITALS: BP 132/69; PULSE 85; RESP 18; TEMP 97.8
[2024-06-03 08:50] VITALS: RESP 19; TEMP 96.7
[2024-06-03 20:15] VITALS: BP 120/79; PULSE 75; RESP 19; TEMP 98.9; O2SAT 100
[2024-06-03] MEDS: RisperiDONE 3 MG TABLET PO SCH (20:26)
[2024-06-03] MEDS: QUEtiapine FUMARATE 200 MG TABLET PO SCH (21:36)
[2024-06-04 08:14] VITALS: RESP 18
[2024-06-04 21:52] VITALS: RESP 18; TEMP 97.8
[2024-06-05 08:10] VITALS: RESP 16
[2024-06-05 08:40] VITALS: BP 112/68; PULSE 89; RESP 16; TEMP 98
[2024-06-05 17:51] VITALS: BP 97/65; PULSE 71; RESP 20; TEMP 97.5; O2SAT 100
[2024-06-05 18:21] LABS: GLUCOMETER DEV NAME(LOC) BV3S.; GLUCOSE,POINT OF CARE 104 MG/DL (70-110)
[2024-06-05 23:50] VITALS: BP 118/81; PULSE 89; RESP 20; TEMP 97.5; O2SAT 100
[2024-06-06 08:12] VITALS: RESP 16
[2024-06-06] MEDS: GuaiFENesin/D-METHORPHAN [SUGAR-FREE] 200-20MG/10 ML SYRUP UDCUP PO PRN (10:06)
[2024-06-06 20:55] VITALS: BP 120/60; PULSE 78; RESP 18; TEMP 97.7; O2SAT 100
[2024-06-07 08:23] VITALS: BP 130/73; PULSE 107; RESP 16; TEMP 97.7; O2SAT 98
[2024-06-07 20:12] VITALS: RESP 17
[2024-06-08 08:11] LABS: BASOPHILS % (AUTO) 0.5 % (0.0-2.0); EOSINOPHILS % (AUTO) 3.1 % (1.0-6.0); HEMATOCRIT 40.8 % (36-46); HEMOGLOBIN 13.5 g/dL (12.0-16.0); LYMPHOCYTES # (AUTO) 3.9 K/uL (1.0-4.8); LYMPHOCYTES % (AUTO) 49.9 % (22.0-44.0); MEAN CORPUSCULAR HEMOGLOBIN 30.1 pg (26.0-34.0); MEAN CORPUSCULAR HGB CONC 33.1 G/dL (31.0-37.0); MEAN CORPUSCULAR VOLUME 91 fL (80-100); MONOCYTES # (AUTO) 0.5 K/uL (0.1-1.0); MONOCYTES % (AUTO) 6.9 % (2.0-9.0); NEUTROPHILS # (AUTO) 3.1 K/uL (1.8-7.7); NEUTROPHILS % (AUTO) 39.6 % (40.0-70.0); PLATELET COUNT (AUTO) 279 K/uL (150-450); RED BLOOD CELL COUNT(AUTO) 4.48 MIL/uL (4.00-5.20); RED CELL DISTRIBUTION WIDTH 14.4 % (11.5-14.5); WHITE BLOOD COUNT (AUTO) 7.8 K/uL (4.5-11.0)
[2024-06-08 08:24] VITALS: BP 109/68; PULSE 97; RESP 16; TEMP 97.6; O2SAT 99
[2024-06-08 20:06] VITALS: BP 109/67; PULSE 65; RESP 18; TEMP 96.7; O2SAT 99
[2024-06-09 06:56] LABS: GLUCOMETER DEV NAME(LOC) BV3S.; GLUCOSE,POINT OF CARE 144 MG/DL (70-110)
[2024-06-09] MEDS: DiphenhydrAMINE HCL 50 MG/ML VIAL IM ONE (08:10)
[2024-06-09] MEDS: LORazepam 2 MG/ML VIAL IM ONE (08:10)
[2024-06-09] MEDS: HALOPERIDOL LACTATE 5 MG/ML VIAL IM ONE (08:10)
[2024-06-09 08:12] VITALS: RESP 17
[2024-06-09 12:30] VITALS: BP 132/72; PULSE 90; RESP 18; TEMP 98; O2SAT 99
[2024-06-09 20:00] VITALS: RESP 16
[2024-06-09] MEDS: QUEtiapine FUMARATE 100 MG TABLET PO SCH (21:20)
[2024-06-09] MEDS: RisperiDONE 1 MG TABLET PO SCH (21:20)
[2024-06-10 08:07] VITALS: BP 137/99; PULSE 100; RESP 16; TEMP 97.6; O2SAT 99
[2024-06-10 21:48] VITALS: BP 126/81; PULSE 88; RESP 18; TEMP 97; O2SAT 98
[2024-06-11 09:08] VITALS: BP 116/72; PULSE 110; RESP 16; TEMP 97.5; O2SAT 97
[2024-06-11 11:07] LABS: CLOZAPINE & NORCLOZAPINE 1555 ng/mL; NORCLOZAPINE 337 ng/mL (Not Estab.)
[2024-06-11 21:31] VITALS: BP 113/84; PULSE 91; RESP 18; TEMP 98.4; O2SAT 100
[2024-06-12 10:49] VITALS: BP 113/66; PULSE 100; RESP 17; TEMP 98.7; O2SAT 97
[2024-06-12] MEDS: DiphenhydrAMINE HCL 50 MG/ML VIAL IM PRN (20:49)
[2024-06-13 08:36] VITALS: BP 114/82; PULSE 102; RESP 17; TEMP 97.7; O2SAT 99
[2024-06-13] MEDS: NALTREXONE HCL 50 MG TABLET PO SCH (20:20)
[2024-06-13] MEDS: CloZAPine 100 MG TABLET PO SCH (20:20)
[2024-06-14 08:41] VITALS: BP 113/77; PULSE 103; RESP 17; TEMP 97.6; O2SAT 98
[2024-06-14 23:41] VITALS: RESP 17
[2024-06-15 09:02] LABS: BASOPHILS % (AUTO) 0.2 % (0.0-2.0); EOSINOPHILS % (AUTO) 2.4 % (1.0-6.0); HEMATOCRIT 41.3 % (36-46); HEMOGLOBIN 13.7 g/dL (12.0-16.0); LYMPHOCYTES # (AUTO) 2.9 K/uL (1.0-4.8); LYMPHOCYTES % (AUTO) 31.6 % (22.0-44.0); MEAN CORPUSCULAR HEMOGLOBIN 30.2 pg (26.0-34.0); MEAN CORPUSCULAR HGB CONC 33.1 G/dL (31.0-37.0); MEAN CORPUSCULAR VOLUME 91 fL (80-100); MONOCYTES # (AUTO) 0.8 K/uL (0.1-1.0); MONOCYTES % (AUTO) 8.6 % (2.0-9.0); NEUTROPHILS # (AUTO) 5.2 K/uL (1.8-7.7); NEUTROPHILS % (AUTO) 57.2 % (40.0-70.0); PLATELET COUNT (AUTO) 257 K/uL (150-450); RED BLOOD CELL COUNT(AUTO) 4.52 MIL/uL (4.00-5.20); RED CELL DISTRIBUTION WIDTH 14.9 % (11.5-14.5); WHITE BLOOD COUNT (AUTO) 9.2 K/uL (4.5-11.0)
[2024-06-15 09:21] VITALS: BP 125/87; PULSE 109; RESP 17; TEMP 97.3; O2SAT 98
[2024-06-15 23:40] VITALS: RESP 17
[2024-06-16 08:08] VITALS: BP 119/81; PULSE 100; RESP 17; TEMP 97; O2SAT 96
[2024-06-16 20:00] VITALS: RESP 16
[2024-06-17 13:52] VITALS: BP 118/76; RESP 18; O2SAT 96
[2024-06-17 20:13] VITALS: BP 122/78; RESP 18; TEMP 97.5; O2SAT 97
[2024-06-17 21:06] LABS: CLOZAPINE & NORCLOZAPINE 1972 ng/mL; NORCLOZAPINE 462 ng/mL (Not Estab.)
[2024-06-18 08:21] VITALS: BP 125/84; PULSE 96; RESP 18; TEMP 97; O2SAT 99
[2024-06-18 20:00] VITALS: BP 99/69; PULSE 92; RESP 17; TEMP 97.8; O2SAT 98
[2024-06-19 08:39] VITALS: BP 108/76; PULSE 100; RESP 17; TEMP 97.3; O2SAT 97
[2024-06-19 20:00] VITALS: BP 111/69; PULSE 82; RESP 18; TEMP 98; O2SAT 96
[2024-06-20 08:23] VITALS: BP 111/80; PULSE 97; RESP 17; TEMP 98.3; O2SAT 98
[2024-06-20 21:52] VITALS: RESP 17
[2024-06-21 10:18] VITALS: BP 118/84; PULSE 100; RESP 18; TEMP 97.5; O2SAT 98
[2024-06-21 17:35] VITALS: BP 132/88; PULSE 83; RESP 18; TEMP 97.5; O2SAT 98
[2024-06-21] MEDS: HALOPERIDOL LACTATE 5 MG/ML VIAL IM PRN (21:17)
[2024-06-21 21:52] VITALS: BP 109/70; PULSE 98; RESP 17; TEMP 97.7; O2SAT 96
[2024-06-22 08:13] LABS: BASOPHILS % (AUTO) 0.6 % (0.0-2.0); EOSINOPHILS % (AUTO) 4.5 % (1.0-6.0); HEMATOCRIT 39.9 % (36-46); HEMOGLOBIN 13.4 g/dL (12.0-16.0); LYMPHOCYTES # (AUTO) 4.3 K/uL (1.0-4.8); MEAN CORPUSCULAR HEMOGLOBIN 30.6 pg (26.0-34.0); MEAN CORPUSCULAR HGB CONC 33.6 G/dL (31.0-37.0); MEAN CORPUSCULAR VOLUME 91 fL (80-100); MONOCYTES # (AUTO) 0.6 K/uL (0.1-1.0); MONOCYTES % (AUTO) 6.5 % (2.0-9.0); NEUTROPHILS # (AUTO) 3.7 K/uL (1.8-7.7); NEUTROPHILS % (AUTO) 40.4 % (40.0-70.0); PLATELET COUNT (AUTO) 280 K/uL (150-450); RED BLOOD CELL COUNT(AUTO) 4.38 MIL/uL (4.00-5.20); RED CELL DISTRIBUTION WIDTH 14.6 % (11.5-14.5); WHITE BLOOD COUNT (AUTO) 9.1 K/uL (4.5-11.0)
[2024-06-22 10:40] VITALS: BP 134/99; PULSE 91; RESP 18; TEMP 96.9; O2SAT 96
[2024-06-22 20:16] VITALS: BP 108/79; PULSE 85; RESP 18; TEMP 97.2; O2SAT 97
[2024-06-23 08:17] VITALS: BP 115/84; PULSE 97; RESP 17; TEMP 97.3; O2SAT 97
[2024-06-24 08:18] VITALS: BP 136/90; PULSE 90; RESP 17; TEMP 98.3; O2SAT 99
[2024-06-24 20:00] VITALS: RESP 16
[2024-06-25 08:11] VITALS: BP 116/81; PULSE 77; RESP 17; TEMP 97.8; O2SAT 98
[2024-06-25 20:15] VITALS: BP 106/62; PULSE 77; RESP 20; TEMP 97.7; O2SAT 98
[2024-06-26 08:12] VITALS: BP 107/76; PULSE 87; RESP 17; TEMP 97.6; O2SAT 96
[2024-06-26 22:19] VITALS: RESP 16
[2024-06-27 08:13] VITALS: BP 100/65; PULSE 79; RESP 16; TEMP 97.9; O2SAT 99
[2024-06-27 21:15] VITALS: RESP 18
[2024-06-28 08:15] VITALS: BP 113/72; PULSE 80; RESP 18; TEMP 98; O2SAT 97
[2024-06-28 10:07] LABS: CLOZAPINE & NORCLOZAPINE 809 ng/mL; NORCLOZAPINE 241 ng/mL (Not Estab.)
[2024-06-28] MEDS: OLANZapine 5 MG RAPDIS TABLET PO SCH (20:22)
[2024-06-29 08:24] LABS: BASOPHILS % (AUTO) 0.3 % (0.0-2.0); EOSINOPHILS % (AUTO) 3.3 % (1.0-6.0); HEMATOCRIT 37.4 % (36-46); HEMOGLOBIN 12.4 g/dL (12.0-16.0); LYMPHOCYTES # (AUTO) 3.2 K/uL (1.0-4.8); LYMPHOCYTES % (AUTO) 41.7 % (22.0-44.0); MEAN CORPUSCULAR HEMOGLOBIN 30.4 pg (26.0-34.0); MEAN CORPUSCULAR HGB CONC 33.3 G/dL (31.0-37.0); MEAN CORPUSCULAR VOLUME 92 fL (80-100); MONOCYTES # (AUTO) 0.6 K/uL (0.1-1.0); MONOCYTES % (AUTO) 7.5 % (2.0-9.0); NEUTROPHILS # (AUTO) 3.6 K/uL (1.8-7.7); NEUTROPHILS % (AUTO) 47.2 % (40.0-70.0); PLATELET COUNT (AUTO) 259 K/uL (150-450); RED BLOOD CELL COUNT(AUTO) 4.08 MIL/uL (4.00-5.20); WHITE BLOOD COUNT (AUTO) 7.6 K/uL (4.5-11.0)
[2024-06-29 08:56] VITALS: BP 103/62; PULSE 92; RESP 18; TEMP 97.7; O2SAT 97
[2024-06-29 20:00] VITALS: BP 101/70; PULSE 73; RESP 16; TEMP 97.8; O2SAT 96
[2024-06-30 08:38] VITALS: BP 100/62; PULSE 74; RESP 17; TEMP 97.6; O2SAT 96
[2024-06-30 20:09] VITALS: BP 132/90; PULSE 82; RESP 16; TEMP 97.8; O2SAT 96
[2024-07-01 08:24] VITALS: BP 100/60; PULSE 62; RESP 17; TEMP 97.6; O2SAT 95
[2024-07-01 20:16] VITALS: BP 105/65; PULSE 77; RESP 18; TEMP 98.4; O2SAT 98
[2024-07-02 08:11] VITALS: RESP 16
[2024-07-02 12:16] LABS: GLUCOMETER DEV NAME(LOC) BV3S.; GLUCOSE,POINT OF CARE 145 MG/DL (70-110)
[2024-07-03 01:35] VITALS: RESP 16
[2024-07-03 06:46] LABS: GLUCOMETER DEV NAME(LOC) BV3S.; GLUCOSE,POINT OF CARE 140 MG/DL (70-110)
[2024-07-03 08:05] VITALS: BP 115/80; PULSE 85; RESP 17; TEMP 97.6; O2SAT 100
[2024-07-03 20:00] VITALS: BP 103/64; PULSE 78; RESP 17; TEMP 97.2; O2SAT 97
[2024-07-04 08:10] VITALS: BP 108/66; PULSE 86; RESP 16; TEMP 97.8; O2SAT 98
[2024-07-04 10:02] VITALS: RESP 16
[2024-07-04 11:02] VITALS: RESP 16
[2024-07-04 14:08] VITALS: RESP 18
[2024-07-04 15:04] VITALS: RESP 18
[2024-07-04 20:00] VITALS: RESP 16
[2024-07-05] MEDS: OLANZapine 5 MG RAPDIS TABLET PO PRN (08:15)
[2024-07-05 08:46] VITALS: RESP 16
[2024-07-05 09:15] VITALS: BP 102/63; PULSE 91; RESP 17; TEMP 97.6; O2SAT 96
[2024-07-05 09:46] VITALS: RESP 17
[2024-07-05 20:00] VITALS: RESP 16
[2024-07-05] MEDS: OLANZapine 10 MG RAPDIS TABLET PO SCH (21:49)
[2024-07-06 08:06] VITALS: BP 112/74; PULSE 82; RESP 16; TEMP 98.3; O2SAT 98
[2024-07-06 20:06] VITALS: RESP 17
[2024-07-07 08:15] VITALS: BP 103/65; PULSE 100; RESP 16; TEMP 98; O2SAT 99
[2024-07-07] MEDS: OLANZapine 10 MG RAPDIS TABLET PO SCH (20:07)
[2024-07-07] MEDS: QUEtiapine FUMARATE 100 MG TABLET PO SCH (20:08)
[2024-07-07 20:10] VITALS: RESP 16
[2024-07-08 08:16] VITALS: BP 100/53; PULSE 75; RESP 16; TEMP 97.5; O2SAT 98
[2024-07-09 02:11] VITALS: RESP 16
[2024-07-09 08:02] VITALS: BP 118/77; PULSE 86; RESP 17; TEMP 98; O2SAT 97
[2024-07-09] MEDS ORDERED: LORazepam 2 MG/ML VIAL ONE (11:23)
[2024-07-09] MEDS: LORazepam 2 MG/ML VIAL IM ONE (11:32)
[2024-07-09] MEDS: DiphenhydrAMINE HCL 50 MG/ML VIAL IM ONE (11:32)
[2024-07-09] MEDS: HALOPERIDOL LACTATE 5 MG/ML VIAL IM ONE (11:33)
[2024-07-10 04:30] VITALS: BP_SYST 110; BP_SYST 112; BP_DIAS 76; PULSE 88; RESP 16; TEMP 97.8; TEMP 98.2; O2SAT 98
[2024-07-10 05:30] VITALS: PULSE 88; RESP 16
[2024-07-10] MEDS: VALPROIC ACID 250 MG/5 ML SOLUTION UDCUP PO SCH (06:08)
[2024-07-10 20:17] VITALS: RESP 17; TEMP 98; O2SAT 98
[2024-07-11 07:55] VITALS: BP 129/84; PULSE 82; RESP 18; TEMP 98; O2SAT 99
[2024-07-11 11:08] VITALS: BP 114/80; PULSE 88; RESP 18; TEMP 98; O2SAT 98
[2024-07-11 20:08] VITALS: BP 101/62; PULSE 89; RESP 16; TEMP 97.8; O2SAT 98
[2024-07-12 08:20] VITALS: BP 118/76; PULSE 96; RESP 16; TEMP 97.9; O2SAT 97
[2024-07-12 08:49] LABS: BASOPHILS % (AUTO) 0.4 % (0.0-2.0); EOSINOPHILS % (AUTO) 2.1 % (1.0-6.0); HEMATOCRIT 40.1 % (36-46); HEMOGLOBIN 13.6 g/dL (12.0-16.0); LYMPHOCYTES # (AUTO) 3.3 K/uL (1.0-4.8); LYMPHOCYTES % (AUTO) 41.1 % (22.0-44.0); MEAN CORPUSCULAR HEMOGLOBIN 30.9 pg (26.0-34.0); MEAN CORPUSCULAR HGB CONC 33.8 G/dL (31.0-37.0); MEAN CORPUSCULAR VOLUME 92 fL (80-100); MONOCYTES # (AUTO) 0.5 K/uL (0.1-1.0); MONOCYTES % (AUTO) 5.8 % (2.0-9.0); NEUTROPHILS % (AUTO) 50.6 % (40.0-70.0); PLATELET COUNT (AUTO) 322 K/uL (150-450); RED BLOOD CELL COUNT(AUTO) 4.38 MIL/uL (4.00-5.20); RED CELL DISTRIBUTION WIDTH 15.1 % (11.5-14.5); WHITE BLOOD COUNT (AUTO) 7.9 K/uL (4.5-11.0)
[2024-07-12] MEDS: CloZAPine 25 MG TABLET PO SCH (09:20)
[2024-07-13] MEDS: CloZAPine 25 MG TABLET PO SCH ×2 (08:02→20:37)
[2024-07-13 08:23] VITALS: BP 123/73; PULSE 90; RESP 16; TEMP 97.8; O2SAT 98
[2024-07-13 21:13] VITALS: RESP 18
[2024-07-14] MEDS: CloZAPine 25 MG TABLET PO SCH ×2 (08:02→21:07)
[2024-07-14 08:08] VITALS: RESP 16
[2024-07-14 20:00] VITALS: RESP 16
[2024-07-15] MEDS: CloZAPine 25 MG TABLET PO SCH (08:01)
[2024-07-15 09:43] VITALS: BP 119/78; PULSE 90; RESP 17; TEMP 97.7; O2SAT 99
[2024-07-15 20:04] VITALS: RESP 20; TEMP 98
[2024-07-16 08:27] VITALS: BP 129/90; PULSE 90; RESP 17; TEMP 97.4; O2SAT 99
[2024-07-16 20:03] VITALS: RESP 18
[2024-07-17 02:50] VITALS: RESP 18
[2024-07-17 03:52] VITALS: RESP 18
[2024-07-17 08:09] VITALS: BP 154/89; PULSE 100; RESP 18; TEMP 97.7; O2SAT 99
[2024-07-17] MEDS: CloZAPine 25 MG TABLET PO SCH (08:30)
[2024-07-17 20:00] VITALS: RESP 16
[2024-07-17] MEDS: CloZAPine 100 MG TABLET PO SCH (20:11)
[2024-07-18] MEDS: CloZAPine 25 MG TABLET PO SCH (08:00)
[2024-07-18 08:13] VITALS: BP 122/72; PULSE 100; RESP 17; TEMP 97.8; O2SAT 97
[2024-07-18 20:02] VITALS: BP 127/68; PULSE 88; RESP 18; TEMP 98; O2SAT 97
[2024-07-18] MEDS: CloZAPine 100 MG TABLET PO SCH (20:02)
[2024-07-19] MEDS: CloZAPine 25 MG TABLET PO SCH (08:19)
[2024-07-19 08:29] VITALS: BP 111/69; PULSE 73; RESP 17; TEMP 97.5; O2SAT 97
[2024-07-19 08:41] LABS: BASOPHILS % (AUTO) 0.6 % (0.0-2.0); EOSINOPHILS % (AUTO) 1.7 % (1.0-6.0); HEMATOCRIT 40.6 % (36-46); HEMOGLOBIN 13.5 g/dL (12.0-16.0); LYMPHOCYTES # (AUTO) 3.2 K/uL (1.0-4.8); LYMPHOCYTES % (AUTO) 44.1 % (22.0-44.0); MEAN CORPUSCULAR HEMOGLOBIN 30.6 pg (26.0-34.0); MEAN CORPUSCULAR HGB CONC 33.2 G/dL (31.0-37.0); MEAN CORPUSCULAR VOLUME 92 fL (80-100); MONOCYTES # (AUTO) 0.5 K/uL (0.1-1.0); NEUTROPHILS # (AUTO) 3.4 K/uL (1.8-7.7); NEUTROPHILS % (AUTO) 46.6 % (40.0-70.0); PLATELET COUNT (AUTO) 292 K/uL (150-450); RED CELL DISTRIBUTION WIDTH 14.7 % (11.5-14.5); WHITE BLOOD COUNT (AUTO) 7.3 K/uL (4.5-11.0)
[2024-07-19 20:00] VITALS: BP 95/62; PULSE 78; RESP 16; TEMP 98; O2SAT 95
[2024-07-19] MEDS: CloZAPine 100 MG TABLET PO SCH (20:19)
[2024-07-20 08:21] VITALS: BP 130/91; PULSE 100; RESP 16; TEMP 97.9; O2SAT 97
[2024-07-20] MEDS: CloZAPine 100 MG TABLET PO SCH (09:22)
[2024-07-20 20:02] VITALS: BP 126/69; PULSE 90; RESP 16; TEMP 97.8; O2SAT 96
[2024-07-21 08:06] VITALS: BP 129/95; PULSE 100; RESP 16; TEMP 98.6; O2SAT 96
[2024-07-21 08:40] VITALS: RESP 18
[2024-07-21 09:40] VITALS: RESP 18
[2024-07-21 20:00] VITALS: RESP 16
[2024-07-22] MEDS: CloZAPine 25 MG TABLET PO SCH (08:07)
[2024-07-22 08:11] VITALS: BP 124/86; PULSE 107; RESP 18; TEMP 97.5; O2SAT 97
[2024-07-22 11:07] LABS: CLOZAPINE & NORCLOZAPINE 418 ng/mL; NORCLOZAPINE 91 ng/mL (Not Estab.)
[2024-07-22 20:00] VITALS: RESP 16
[2024-07-22] MEDS: CloZAPine 100 MG TABLET PO SCH (20:40)
[2024-07-23] MEDS: CloZAPine 25 MG TABLET PO SCH (08:00)
[2024-07-23 08:01] VITALS: RESP 16
[2024-07-23 08:05] VITALS: BP 122/83; PULSE 80; RESP 22; TEMP 98; O2SAT 98
[2024-07-23] MEDS: MAGNESIUM HYDROXIDE SUSPENSION 30 ML UDCUP PO PRN (08:14)
[2024-07-23 09:01] VITALS: RESP 18
[2024-07-23 20:33] VITALS: BP 94/61; PULSE 88; RESP 16; TEMP 97.8; O2SAT 97
[2024-07-23] MEDS: CloZAPine 100 MG TABLET PO SCH (22:04)
[2024-07-24] MEDS: CloZAPine 100 MG TABLET PO SCH ×2 (08:11→20:05)
[2024-07-24 08:15] VITALS: BP 100/67; PULSE 100; RESP 18; TEMP 97.5; O2SAT 97
[2024-07-24 20:09] VITALS: RESP 16
[2024-07-25 06:34] VITALS: BP 112/77; PULSE 86; RESP 18; TEMP 97.8; O2SAT 97
[2024-07-25 08:14] VITALS: BP 113/72; PULSE 79; RESP 16; TEMP 98; O2SAT 98
[2024-07-25 20:00] VITALS: RESP 16
[2024-07-26 08:18] VITALS: BP 124/80; PULSE 100; RESP 18; TEMP 97.5; O2SAT 98
[2024-07-26 08:54] LABS: BASOPHILS % (AUTO) 0.6 % (0.0-2.0); EOSINOPHILS % (AUTO) 2.5 % (1.0-6.0); HEMATOCRIT 41.4 % (36-46); HEMOGLOBIN 13.7 g/dL (12.0-16.0); LYMPHOCYTES # (AUTO) 4.6 K/uL (1.0-4.8); LYMPHOCYTES % (AUTO) 51.9 % (22.0-44.0); MEAN CORPUSCULAR HEMOGLOBIN 30.5 pg (26.0-34.0); MEAN CORPUSCULAR HGB CONC 33.2 G/dL (31.0-37.0); MEAN CORPUSCULAR VOLUME 92 fL (80-100); MONOCYTES # (AUTO) 0.5 K/uL (0.1-1.0); MONOCYTES % (AUTO) 5.6 % (2.0-9.0); NEUTROPHILS # (AUTO) 3.5 K/uL (1.8-7.7); NEUTROPHILS % (AUTO) 39.4 % (40.0-70.0); PLATELET COUNT (AUTO) 351 K/uL (150-450); RED CELL DISTRIBUTION WIDTH 14.4 % (11.5-14.5); WHITE BLOOD COUNT (AUTO) 8.9 K/uL (4.5-11.0)
[2024-07-26] MEDS: OLANZapine 10 MG RAPDIS TABLET PO SCH (20:18)
[2024-07-26 21:00] VITALS: RESP 18
[2024-07-27 08:20] VITALS: BP 105/69; PULSE 100; RESP 17; TEMP 97.3; O2SAT 97
[2024-07-27 11:42] VITALS: RESP 17
[2024-07-27 12:42] VITALS: RESP 16
[2024-07-27 20:05] VITALS: RESP 16
[2024-07-28 08:20] VITALS: BP 137/87; PULSE 96; RESP 16; TEMP 98.9; O2SAT 98
[2024-07-28 08:30] VITALS: RESP 16
[2024-07-28 09:30] VITALS: RESP 16
[2024-07-28 20:21] VITALS: RESP 18
[2024-07-29 08:41] VITALS: RESP 18
[2024-07-29 09:41] VITALS: BP 125/91; PULSE 100; RESP 18; TEMP 97.5; O2SAT 98
[2024-07-30 08:15] VITALS: BP 113/78; PULSE 100; RESP 18; TEMP 98.2; O2SAT 96
[2024-07-30 20:34] VITALS: TEMP 98.1
[2024-07-31 08:34] VITALS: BP 118/81; PULSE 100; RESP 18; TEMP 97.8; O2SAT 96
[2024-07-31 17:01] LABS: GLUCOMETER DEV NAME(LOC) POC.BV; POC SARS-COV2 AG, FIA NEGATIVE (NEGATIVE)
[2024-07-31 20:00] VITALS: BP 102/62; PULSE 86; RESP 16; TEMP 97.5; O2SAT 95
[2024-08-01 08:09] VITALS: RESP 16
[2024-08-01 08:23] VITALS: BP 124/84; PULSE 100; RESP 18; TEMP 98.7; O2SAT 96
[2024-08-01 09:09] VITALS: RESP 17
[2024-08-01 10:40] LABS: GLUCOMETER DEV NAME(LOC) POC.BV; POC SARS-COV2 AG, FIA NEGATIVE (NEGATIVE)
[2024-08-02 08:15] VITALS: RESP 17
[2024-08-02 08:26] VITALS: BP 114/71; PULSE 103; RESP 18; TEMP 97.6; O2SAT 97
[2024-08-02 08:59] LABS: BASOPHILS % (AUTO) 0.5 % (0.0-2.0); EOSINOPHILS % (AUTO) 1.4 % (1.0-6.0); HEMATOCRIT 41.3 % (36-46); HEMOGLOBIN 13.3 g/dL (12.0-16.0); LYMPHOCYTES # (AUTO) 3.7 K/uL (1.0-4.8); LYMPHOCYTES % (AUTO) 42.8 % (22.0-44.0); MEAN CORPUSCULAR HEMOGLOBIN 29.8 pg (26.0-34.0); MEAN CORPUSCULAR HGB CONC 32.3 G/dL (31.0-37.0); MEAN CORPUSCULAR VOLUME 92 fL (80-100); MONOCYTES # (AUTO) 0.4 K/uL (0.1-1.0); NEUTROPHILS # (AUTO) 4.4 K/uL (1.8-7.7); NEUTROPHILS % (AUTO) 50.3 % (40.0-70.0); PLATELET COUNT (AUTO) 346 K/uL (150-450); RED BLOOD CELL COUNT(AUTO) 4.47 MIL/uL (4.00-5.20); RED CELL DISTRIBUTION WIDTH 14.3 % (11.5-14.5); WHITE BLOOD COUNT (AUTO) 8.7 K/uL (4.5-11.0)
[2024-08-02 09:15] VITALS: RESP 18
[2024-08-02 20:42] VITALS: BP 102/68; PULSE 87; RESP 18; TEMP 98.4; O2SAT 97
[2024-08-03 08:18] VITALS: BP 105/74; PULSE 69; RESP 16; TEMP 98.4; O2SAT 97
[2024-08-03] MEDS ORDERED: LORazepam 2 MG/ML VIAL ONE (15:13)
[2024-08-03] MEDS: LORazepam 2 MG/ML VIAL IM ONE ×2 (15:26→17:41)
[2024-08-03] MEDS: DiphenhydrAMINE HCL 50 MG/ML VIAL IM ONE ×2 (15:28→17:40)
[2024-08-03] MEDS: HALOPERIDOL LACTATE 5 MG/ML VIAL IM ONE ×2 (15:28→17:42)
[2024-08-03 23:22] VITALS: RESP 18
[2024-08-04] MEDS: DiphenhydrAMINE HCL 50 MG/ML VIAL IM ONE (04:19)
[2024-08-04] MEDS: HALOPERIDOL LACTATE 5 MG/ML VIAL IM ONE (04:20)
[2024-08-04] MEDS: LORazepam 2 MG/ML VIAL IM ONE (04:20)
[2024-08-04] MEDS: CloZAPine 25 MG TABLET PO SCH (08:01)
[2024-08-04 08:07] VITALS: RESP 18
[2024-08-04 08:19] VITALS: RESP 18
[2024-08-04 09:19] VITALS: RESP 17
[2024-08-04 21:00] VITALS: RESP 18
[2024-08-04 21:01] LABS: GLUCOMETER DEV NAME(LOC) POC.BV; POC SARS-COV2 AG, FIA NEGATIVE (NEGATIVE)
[2024-08-05] MEDS: CloZAPine 100 MG TABLET PO SCH (08:02)
[2024-08-05 08:18] VITALS: BP 107/74; PULSE 100; RESP 18; TEMP 97.9; O2SAT 97
[2024-08-05] MEDS: OLANZapine 10 MG RAPDIS TABLET PO SCH (20:37)
[2024-08-05 20:38] VITALS: BP 104/70; PULSE 84; RESP 17; TEMP 98.1; O2SAT 95
[2024-08-05] MEDS: VALPROIC ACID 250 MG/5 ML SOLUTION UDCUP PO SCH (20:43)
[2024-08-06 13:16] VITALS: RESP 18
[2024-08-06 14:16] VITALS: RESP 17
[2024-08-06 20:30] VITALS: RESP 18
[2024-08-07 20:15] VITALS: RESP 18; TEMP 98
[2024-08-08 08:12] VITALS: BP 121/91; PULSE 90; RESP 18; TEMP 97.9; O2SAT 99
[2024-08-08 20:31] VITALS: TEMP 97.4
[2024-08-09 08:01] VITALS: BP 123/81; PULSE 100; RESP 18; TEMP 97.8; O2SAT 99
[2024-08-09 08:56] LABS: BASOPHILS % (AUTO) 0.6 % (0.0-2.0); EOSINOPHILS % (AUTO) 0.5 % (1.0-6.0); HEMATOCRIT 39.2 % (36-46); HEMOGLOBIN 13.3 g/dL (12.0-16.0); LYMPHOCYTES % (AUTO) 27.3 % (22.0-44.0); MEAN CORPUSCULAR HEMOGLOBIN 30.8 pg (26.0-34.0); MEAN CORPUSCULAR HGB CONC 33.8 G/dL (31.0-37.0); MEAN CORPUSCULAR VOLUME 91 fL (80-100); MONOCYTES # (AUTO) 0.7 K/uL (0.1-1.0); MONOCYTES % (AUTO) 6.6 % (2.0-9.0); NEUTROPHILS # (AUTO) 7.1 K/uL (1.8-7.7); PLATELET COUNT (AUTO) 333 K/uL (150-450); RED BLOOD CELL COUNT(AUTO) 4.31 MIL/uL (4.00-5.20); WHITE BLOOD COUNT (AUTO) 10.9 K/uL (4.5-11.0)
[2024-08-09 20:03] VITALS: RESP 16
[2024-08-09 21:06] LABS: CLOZAPINE & NORCLOZAPINE 941 ng/mL; NORCLOZAPINE 312 ng/mL (Not Estab.)
[2024-08-10 08:18] VITALS: BP 130/91; PULSE 100; RESP 18; TEMP 98.4; O2SAT 99
[2024-08-10 20:32] VITALS: BP 100/60; PULSE 80; RESP 20; TEMP 98; O2SAT 99
[2024-08-11 08:04] VITALS: BP 128/85; PULSE 100; RESP 17; TEMP 97.8; O2SAT 97
[2024-08-11 20:34] VITALS: BP 108/68; PULSE 83; RESP 18; TEMP 98.2; O2SAT 97
[2024-08-12 08:29] VITALS: RESP 17
[2024-08-12 09:22] VITALS: BP 117/79; PULSE 102; RESP 17; TEMP 98.1; O2SAT 95
[2024-08-12 09:29] VITALS: RESP 17
[2024-08-12 20:38] VITALS: RESP 18
[2024-08-13 08:23] VITALS: BP 121/78; PULSE 120; RESP 18; TEMP 97.7; O2SAT 94
[2024-08-14 08:22] VITALS: BP 113/76; PULSE 114; RESP 19; TEMP 97.8; O2SAT 98
[2024-08-14 21:04] VITALS: RESP 18; TEMP 97.8
[2024-08-15 08:20] VITALS: BP 135/88; PULSE 105; RESP 17; TEMP 97.9; O2SAT 97
[2024-08-15 16:06] LABS: CLOZAPINE & NORCLOZAPINE 1395 ng/mL; NORCLOZAPINE 423 ng/mL (Not Estab.)
[2024-08-15 20:39] VITALS: RESP 16; TEMP 97.2
[2024-08-16 08:28] LABS: BASOPHILS % (AUTO) 0.5 % (0.0-2.0); EOSINOPHILS % (AUTO) 1.1 % (1.0-6.0); HEMATOCRIT 40.6 % (36-46); HEMOGLOBIN 13.4 g/dL (12.0-16.0); LYMPHOCYTES # (AUTO) 3.8 K/uL (1.0-4.8); LYMPHOCYTES % (AUTO) 43.3 % (22.0-44.0); MEAN CORPUSCULAR HEMOGLOBIN 30.2 pg (26.0-34.0); MEAN CORPUSCULAR VOLUME 92 fL (80-100); MONOCYTES # (AUTO) 0.6 K/uL (0.1-1.0); MONOCYTES % (AUTO) 7.2 % (2.0-9.0); NEUTROPHILS # (AUTO) 4.2 K/uL (1.8-7.7); NEUTROPHILS % (AUTO) 47.9 % (40.0-70.0); PLATELET COUNT (AUTO) 320 K/uL (150-450); RED BLOOD CELL COUNT(AUTO) 4.44 MIL/uL (4.00-5.20); RED CELL DISTRIBUTION WIDTH 13.9 % (11.5-14.5); WHITE BLOOD COUNT (AUTO) 8.8 K/uL (4.5-11.0)
[2024-08-16 08:35] VITALS: BP 133/94; PULSE 100; RESP 17; TEMP 97.5; O2SAT 98
[2024-08-16 20:01] VITALS: RESP 18
[2024-08-17 08:06] VITALS: BP 117/83; PULSE 110; RESP 16; TEMP 97.8; O2SAT 98
[2024-08-17] MEDS: CloZAPine 100 MG TABLET PO SCH (20:08)
[2024-08-18 08:21] VITALS: BP 109/71; PULSE 100; RESP 17; TEMP 97.6; O2SAT 98
[2024-08-18 20:31] VITALS: BP 118/83; PULSE 93; RESP 16; TEMP 97.6; O2SAT 97
[2024-08-19 08:18] VITALS: BP 116/73; PULSE 76; RESP 16; TEMP 97.9; O2SAT 96
[2024-08-19 08:39] VITALS: RESP 16
[2024-08-19 09:39] VITALS: RESP 16
[2024-08-19 20:30] VITALS: BP 114/76; PULSE 88; RESP 16; TEMP 97.8
[2024-08-20 08:18] VITALS: BP 121/80; PULSE 80; RESP 16; TEMP 97.9; O2SAT 100
[2024-08-20 20:22] VITALS: BP 112/79; PULSE 97; RESP 17; TEMP 97.7; O2SAT 99
[2024-08-21 08:04] VITALS: BP 133/92; PULSE 100; RESP 18; TEMP 97.8; O2SAT 98
[2024-08-21 20:05] VITALS: BP 105/74; PULSE 88; RESP 18; TEMP 97.5; O2SAT 98
[2024-08-22 08:15] VITALS: BP 120/73; PULSE 81; RESP 18; TEMP 97.6; O2SAT 98
[2024-08-22 22:53] VITALS: BP 132/78; PULSE 86; RESP 18; TEMP 97.6
[2024-08-23 08:02] VITALS: BP 119/69; PULSE 100; RESP 18; TEMP 97.7; O2SAT 98
[2024-08-23 08:15] VITALS: RESP 18
[2024-08-23 08:24] LABS: BASOPHILS % (AUTO) 0.4 % (0.0-2.0); EOSINOPHILS % (AUTO) 1.5 % (1.0-6.0); HEMATOCRIT 38.9 % (36-46); HEMOGLOBIN 12.8 g/dL (12.0-16.0); LYMPHOCYTES # (AUTO) 3.6 K/uL (1.0-4.8); LYMPHOCYTES % (AUTO) 41.4 % (22.0-44.0); MEAN CORPUSCULAR HEMOGLOBIN 30.2 pg (26.0-34.0); MEAN CORPUSCULAR VOLUME 92 fL (80-100); MONOCYTES # (AUTO) 0.6 K/uL (0.1-1.0); MONOCYTES % (AUTO) 6.9 % (2.0-9.0); NEUTROPHILS # (AUTO) 4.4 K/uL (1.8-7.7); NEUTROPHILS % (AUTO) 49.8 % (40.0-70.0); PLATELET COUNT (AUTO) 287 K/uL (150-450); RED BLOOD CELL COUNT(AUTO) 4.25 MIL/uL (4.00-5.20); RED CELL DISTRIBUTION WIDTH 13.7 % (11.5-14.5); WHITE BLOOD COUNT (AUTO) 8.8 K/uL (4.5-11.0)
[2024-08-23 09:15] VITALS: RESP 17
[2024-08-23 15:07] LABS: CLOZAPINE & NORCLOZAPINE 1077 ng/mL; NORCLOZAPINE 366 ng/mL (Not Estab.)
[2024-08-23 20:30] VITALS: RESP 18
[2024-08-24 08:08] VITALS: RESP 18
[2024-08-24 08:34] VITALS: BP 133/89; PULSE 100; RESP 16; TEMP 98; O2SAT 98
[2024-08-24 09:08] VITALS: RESP 16
[2024-08-24 20:01] VITALS: BP 92/53; PULSE 85; RESP 16; TEMP 96.7; O2SAT 98
[2024-08-25 08:21] VITALS: BP 135/97; PULSE 100; RESP 18; TEMP 97.9; O2SAT 96
[2024-08-25 09:13] VITALS: RESP 18; O2SAT 97
[2024-08-25 10:13] VITALS: RESP 18; O2SAT 96
[2024-08-25 21:02] VITALS: BP 110/82; PULSE 68; RESP 16; TEMP 97.1; O2SAT 98
[2024-08-26 08:05] VITALS: BP 110/75; PULSE 100; RESP 16; TEMP 97.7; O2SAT 99
[2024-08-27 08:04] VITALS: BP 129/92; PULSE 100; RESP 16; TEMP 97.6; O2SAT 98
[2024-08-27 16:07] VITALS: BP 126/90; PULSE 98; RESP 16; TEMP 97.8; O2SAT 97
[2024-08-28 08:02] VITALS: BP 124/80; PULSE 89; RESP 16; TEMP 97.8; O2SAT 95
[2024-08-28 23:59] VITALS: BP 109/63; PULSE 90; RESP 16; O2SAT 95
[2024-08-29 08:13] VITALS: BP 122/72; PULSE 73; RESP 16; TEMP 97.6; O2SAT 97
[2024-08-29 20:50] VITALS: RESP 16
[2024-08-30 08:31] VITALS: BP 112/78; PULSE 100; RESP 17; TEMP 97.3; O2SAT 98
[2024-08-30 08:55] LABS: BASOPHILS % (AUTO) 0.5 % (0.0-2.0); EOSINOPHILS % (AUTO) 1.3 % (1.0-6.0); HEMOGLOBIN 12.9 g/dL (12.0-16.0); LYMPHOCYTES # (AUTO) 3.4 K/uL (1.0-4.8); LYMPHOCYTES % (AUTO) 37.9 % (22.0-44.0); MEAN CORPUSCULAR HGB CONC 33.1 G/dL (31.0-37.0); MEAN CORPUSCULAR VOLUME 91 fL (80-100); MONOCYTES # (AUTO) 0.7 K/uL (0.1-1.0); MONOCYTES % (AUTO) 7.3 % (2.0-9.0); NEUTROPHILS # (AUTO) 4.7 K/uL (1.8-7.7); PLATELET COUNT (AUTO) 298 K/uL (150-450); RED BLOOD CELL COUNT(AUTO) 4.29 MIL/uL (4.00-5.20); RED CELL DISTRIBUTION WIDTH 13.3 % (11.5-14.5); WHITE BLOOD COUNT (AUTO) 8.9 K/uL (4.5-11.0)
[2024-08-30 20:16] VITALS: BP 90/66; PULSE 64; RESP 14; O2SAT 98
[2024-08-30 21:27] VITALS: BP 90/66; PULSE 64; RESP 14; O2SAT 98
[2024-08-31 08:21] VITALS: BP 118/74; PULSE 78; RESP 16; TEMP 97.9; O2SAT 98
[2024-08-31 20:10] VITALS: BP 116/84; PULSE 97; RESP 18; TEMP 97.2; O2SAT 96
[2024-09-01 08:05] VITALS: BP 125/82; PULSE 100; RESP 16; TEMP 97.9; O2SAT 97
[2024-09-02 08:16] VITALS: BP 142/91; PULSE 97; RESP 16; TEMP 97.5; O2SAT 98
[2024-09-02 10:07] LABS: CLOZAPINE & NORCLOZAPINE 734 ng/mL; NORCLOZAPINE 258 ng/mL (Not Estab.)
[2024-09-02 11:11] LABS: GLUCOMETER DEV NAME(LOC) BV3S.; GLUCOSE,POINT OF CARE 144 MG/DL (70-110)
[2024-09-02] MEDS ORDERED: TUBERCULIN, PURIFIED PROTEIN DERIVATIVE 5 TU/0.1 ML SYRINGE ID ONE (13:45)
[2024-09-02] MEDS ORDERED: CLOZ100T61 PO ×2 (16:11)
[2024-09-02] MEDS ORDERED: OLAN10TA26 PO (16:11)
[2024-09-02] MEDS ORDERED: NALT50TA33 PO (16:11)
[2024-09-02] MEDS: TUBERCULIN, PURIFIED PROTEIN DERIVATIVE 5 TU/0.1 ML SYRINGE ID ONE (18:56)
[2024-09-02 20:41] VITALS: RESP 16
[2024-09-03 08:33] VITALS: BP 138/88; PULSE 107; RESP 17; TEMP 98.7; O2SAT 98
[2024-09-03 20:50] VITALS: BP 100/66; PULSE 98; RESP 16; TEMP 96.8; O2SAT 98
[2024-09-04 08:40] VITALS: BP 113/81; PULSE 100; RESP 17; TEMP 97; O2SAT 98
[2024-09-04 20:06] VITALS: BP 100/60; PULSE 85; RESP 17; TEMP 97; O2SAT 99
[2024-09-05 08:18] VITALS: BP 116/70; PULSE 91; RESP 18; TEMP 97.6; O2SAT 99
[2024-09-05 11:40] LABS: GLUCOMETER DEV NAME(LOC) POC.BV; POC SARS-COV2 AG, FIA NEGATIVE (NEGATIVE)
[2024-09-05 20:21] VITALS: BP 122/84; PULSE 87; RESP 18; TEMP 97; O2SAT 99
[2024-09-06 07:36] LABS: GLUCOMETER DEV NAME(LOC) POC.BV; POC SARS-COV2 AG, FIA NEGATIVE (NEGATIVE)
[2024-09-06 08:12] VITALS: BP 133/93; PULSE 70; RESP 16; TEMP 97.6; O2SAT 97
[2024-09-06 08:34] LABS: BASOPHILS % (AUTO) 0.4 % (0.0-2.0); EOSINOPHILS % (AUTO) 0.9 % (1.0-6.0); HEMATOCRIT 39.9 % (36-46); HEMOGLOBIN 13.3 g/dL (12.0-16.0); LYMPHOCYTES # (AUTO) 3.5 K/uL (1.0-4.8); LYMPHOCYTES % (AUTO) 40.3 % (22.0-44.0); MEAN CORPUSCULAR HGB CONC 33.3 G/dL (31.0-37.0); MEAN CORPUSCULAR VOLUME 90 fL (80-100); MONOCYTES # (AUTO) 0.6 K/uL (0.1-1.0); MONOCYTES % (AUTO) 7.4 % (2.0-9.0); NEUTROPHILS # (AUTO) 4.4 K/uL (1.8-7.7); PLATELET COUNT (AUTO) 320 K/uL (150-450); RED BLOOD CELL COUNT(AUTO) 4.44 MIL/uL (4.00-5.20); RED CELL DISTRIBUTION WIDTH 13.5 % (11.5-14.5); WHITE BLOOD COUNT (AUTO) 8.6 K/uL (4.5-11.0)
[2024-09-09 14:07] LABS: CLOZAPINE & NORCLOZAPINE 799 ng/mL; NORCLOZAPINE 288 ng/mL (Not Estab.)
== END 2024-09-06 18:27 | DRG 750 ==
LOC: EMS 11:32 → B3A 13:16
PROVIDERS: ADMIT Psychiatry & Neurology Psychiatry; ATTEND Psychiatry & Neurology Psychiatry
PROC: GZHZZZZ Group Psychotherapy (ICD-10-PCS; principal; 2024-03-21)
PROC: GZ56ZZZ Individual Psychotherapy, Supportive (ICD-10-PCS; 2024-03-21)
DX: F20.0 Paranoid schizophrenia (principal); G93.41 Metabolic encephalopathy; E11.9 Type 2 diabetes mellitus without complications; Z91.148 Patient's other noncompliance with medication regimen for other reason; E03.9 Hypothyroidism, unspecified; I10 Essential (primary) hypertension; J45.909 Unspecified asthma, uncomplicated; Z20.822 Contact with and (suspected) exposure to COVID-19; K21.9 Gastro-esophageal reflux disease without esophagitis; E78.5 Hyperlipidemia, unspecified; F43.10 Post-traumatic stress disorder, unspecified; Z59.00 Homelessness unspecified; Z79.899 Other long term (current) drug therapy; Z83.3 Family history of diabetes mellitus; Z91.199 Patient's noncompliance with other medical treatment and regimen due to unspecified reason
CPT/HCPCS: 80053; 80074; 80076; 80159; 80164; 80173; 80307; 81001; 82962; 83036; 84702; 84703; 85025; 87081; 87481; 99285; G0480; J1200; J1630; J1631; J2060; Q0162

== ENCOUNTER 2024-06-05 19:22 | Emergency (ER) | payer MEDICAID, OTHER ==
[~2024-06-05] VITALS: Ht 167.6 cm; Wt 79.5 kg
[2024-06-05 19:28] VITALS: TEMP 98.1
[2024-06-05 21:01] LABS: BASOPHILS % (AUTO) 0.5 % (0.0-2.0); EOSINOPHILS % (AUTO) 6.1 % (1.0-6.0); HEMATOCRIT 39.8 % (36-46); HEMOGLOBIN 13.2 g/dL (12.0-16.0); LYMPHOCYTES # (AUTO) 3.5 K/uL (1.0-4.8); LYMPHOCYTES % (AUTO) 43.7 % (22.0-44.0); MEAN CORPUSCULAR HGB CONC 33.2 G/dL (31.0-37.0); MEAN CORPUSCULAR VOLUME 90 fL (80-100); MONOCYTES # (AUTO) 0.7 K/uL (0.1-1.0); MONOCYTES % (AUTO) 8.9 % (2.0-9.0); NEUTROPHILS # (AUTO) 3.3 K/uL (1.8-7.7); NEUTROPHILS % (AUTO) 40.8 % (40.0-70.0); PLATELET COUNT (AUTO) 255 K/uL (150-450); RED BLOOD CELL COUNT(AUTO) 4.41 MIL/uL (4.00-5.20); RED CELL DISTRIBUTION WIDTH 14.4 % (11.5-14.5)
[2024-06-05 21:13] LABS: ANION GAP 6 mmol/L (8-16); CARBON DIOXIDE 29 mmol/L (22-29); CHLORIDE 106 mmol/L (98-107); CREATININE 0.71 mg/dL (0.60-1.30); GLOMERULAR FILTR. RATE CALC > 60 mL/min (>60); GLUCOSE,RANDOM 105 mg/dL (70-110); LIPASE 32 U/L (16-77); POTASSIUM 3.9 mmol/L (3.5-5.1); SODIUM SERUM 141 mmol/L (136-145); UREA NITROGEN, BLOOD 13 mg/dL (7-18)
[2024-06-05 21:20] LABS: LACTIC ACID 1.4 mmol/L (0.4-2.0)
[2024-06-05 21:21] LABS: AMMONIA 34 umol/L (11-32)
[2024-06-05 21:30] VITALS: BP 117/80; PULSE 76; RESP 16
[2024-06-05 22:25] LABS: TROPONIN I-HIGH SENSITIVITY Less Than 4 ng/L (<51)
== END 2024-06-06 00:41 | disposition home or self-care (01) ==
LOC: EMS 19:22
DX: F20.0 Paranoid schizophrenia (principal); E11.9 Type 2 diabetes mellitus without complications; I10 Essential (primary) hypertension; J45.909 Unspecified asthma, uncomplicated; E03.9 Hypothyroidism, unspecified; Z53.20 Procedure and treatment not carried out because of patient's decision for unspecified reasons
CPT/HCPCS: 80048; 82140; 83605; 83690; 84484; 84703; 85025; 99283

== ENCOUNTER 2024-06-21 18:05 | Emergency (ER) | payer OTHER ==
[~2024-06-21] VITALS: Ht 157.5 cm; Wt 70.5 kg
[2024-06-21 18:27] VITALS: TEMP 98
[2024-06-21 18:43] LABS: BASOPHILS % (AUTO) 0.5 % (0.0-2.0); EOSINOPHILS % (AUTO) 5.8 % (1.0-6.0); LYMPHOCYTES # (AUTO) 3.9 K/uL (1.0-4.8); LYMPHOCYTES % (AUTO) 45.2 % (22.0-44.0); MEAN CORPUSCULAR HEMOGLOBIN 30.4 pg (26.0-34.0); MEAN CORPUSCULAR HGB CONC 33.4 G/dL (31.0-37.0); MEAN CORPUSCULAR VOLUME 91 fL (80-100); MONOCYTES # (AUTO) 0.7 K/uL (0.1-1.0); MONOCYTES % (AUTO) 7.8 % (2.0-9.0); NEUTROPHILS # (AUTO) 3.5 K/uL (1.8-7.7); NEUTROPHILS % (AUTO) 40.7 % (40.0-70.0); PLATELET COUNT (AUTO) 269 K/uL (150-450); RED BLOOD CELL COUNT(AUTO) 4.28 MIL/uL (4.00-5.20); RED CELL DISTRIBUTION WIDTH 14.8 % (11.5-14.5); WHITE BLOOD COUNT (AUTO) 8.5 K/uL (4.5-11.0)
[2024-06-21 18:52] LABS: ANION GAP 8 mmol/L (8-16); CALCIUM, TOTAL 8.8 mg/dL (8.8-10.5); CARBON DIOXIDE 28 mmol/L (22-29); CHLORIDE 105 mmol/L (98-107); CREATININE 0.84 mg/dL (0.60-1.30); GLOMERULAR FILTR. RATE CALC > 60 mL/min (>60); GLUCOSE,RANDOM 127 mg/dL (70-110); POTASSIUM 3.7 mmol/L (3.5-5.1); SODIUM SERUM 141 mmol/L (136-145); UREA NITROGEN, BLOOD 8 mg/dL (7-18)
[2024-06-21 18:58] LABS: ALANINE AMINOTRANSFERASE 20 U/L (12-78); ALBUMIN 2.9 g/dL (3.4-5.0); ALKALINE PHOSPHATASE 95 U/L (46-116); ASPARTATE AMINOTRANSFERASE 12 U/L (15-37); BILIRUBIN,TOTAL 0.2 mg/dL (0.1-1.0); CREATINE KINASE, TOTAL ONLY 61 U/L (26-192); PHOSPHORUS 4.3 mg/dL (2.5-4.9); TOTAL PROTEIN, SERUM 6.4 g/dL (6.4-8.2)
[2024-06-21 18:59] LABS: TROPONIN I-HIGH SENSITIVITY Less Than 4 ng/L (<51)
[2024-06-21 20:25] VITALS: BP 128/84; PULSE 89; RESP 16
[2024-06-24 09:07] LABS: CLOZAPINE & NORCLOZAPINE 891 ng/mL; NORCLOZAPINE 262 ng/mL (Not Estab.)
== END 2024-06-21 20:45 | disposition home or self-care (01) ==
LOC: EMS 18:05
DX: Z79.891 Long term (current) use of opiate analgesic (principal); J45.909 Unspecified asthma, uncomplicated; E11.9 Type 2 diabetes mellitus without complications; I10 Essential (primary) hypertension; E03.9 Hypothyroidism, unspecified; F20.9 Schizophrenia, unspecified
CPT/HCPCS: 80053; 80159; 82550; 83735; 84100; 84484; 84703; 85025; 93005; 99284